=== PATIENT | male | born 1955 | race Caucasian/White ===

== ENCOUNTER 2016-06-05 16:25 | Inpatient (IN) | payer OTHER ==
[~2016-06-05] VITALS: Ht 175.3 cm; Wt 72.5 kg
[2016-06-05 16:27] VITALS: BP 128/64; PULSE 99; RESP 19; TEMP 98.2; O2SAT 97
--- NOTE | 2016-06-05 16:49 | PD ---
Physical Exam Date Seen by Provider: Jun 05, 2016 Time Seen by Provider: 16:47 Narrative 61 year old male presents to the emergency department for evaluation of swollen scrotum with associated pain. He reports dysuria, urinary frequency, urgency. Patient awaiting bed placement. Data Data Last Documented VS Vital Signs Date Time Temp Pulse Resp B/P Pulse Ox O2 Delivery O2 Flow Rate FiO2 06/05/16 16:27 98.2 99 19 128/64 97 MDM Supervised Visit with JAMES: No Scripts No Active Prescriptions or Reported Meds Silva Aguiar Jun 05, 2016 16:49
--- NOTE | 2016-06-05 18:10 | PD ---
HPI Chief Complaint: Complaint Time Seen by Provider: 17:45 Travel History International Travel<30 days: No Contact w/Intl Traveler<30days: No Traveled to known affect area: No History of Present Illness HPI 61-year-old male with history of hepatitis C, diabetes, here for evaluation of scrotal and penile swelling and pain. The patient reports increasing swelling in this region over the last week. Pain is severe, constant, worse with movement and palpation. He denies fevers or chills. No nausea or vomiting. No abdominal pain. PFSH Social History Tobacco Use: Yes Allergies-Medications (Allergen,Severity, Reaction): Coded Allergies: No Known Allergies (Unverified , 06/05/16) Reported Meds & Prescriptions Reported Meds & Active Scripts Active Reported Lactulose Liq (Lactulose) 10 Gm/15 Ml Soln Unknown Dose PO TID Metformin (Metformin HCl) 1,000 Mg Tab 1,000 Mg PO BID With meals Review of Systems Except as stated in HPI: all other systems reviewed are Neg Physical Exam Narrative GENERAL: Well-developed, well-nourished, moderate distress secondary to pain. SKIN: Focused skin assessment warm/dry. HEAD: Atraumatic. Normocephalic. EYES: Pupils equal and round. No scleral icterus. No injection or drainage. ENT: Mucous membranes pink and moist. Poor dentition with several missing teeth. NECK: Trachea midline. No JVD. CARDIOVASCULAR: Regular rate and rhythm. RESPIRATORY: No accessory muscle use. Clear to auscultation. Breath sounds equal bilaterally. GASTROINTESTINAL: Abdomen distended with fluid wave, nontender. : Significant scrotal and penile edema with mild scrotal erythema, no crepitus, no signs of necrosis. MUSCULOSKELETAL: No obvious deformities. No clubbing. No cyanosis. No edema. NEUROLOGICAL: Awake and alert. No obvious cranial nerve deficits. Motor grossly within normal limits. Normal speech. PSYCHIATRIC: Appropriate mood and affect; insight and judgment normal. Data Data Last Documented VS Vital Signs Date Time Temp Pulse Resp B/P Pulse Ox O2 Delivery O2 Flow Rate FiO2 06/05/16 19:22 96.6 88 16 120/63 97 Room Air Orders Complete Blood Count With Diff (06/05/16 18:02) Comprehensive Metabolic Panel (06/05/16 18:02) Prothrombin Time / Inr (Pt) (06/05/16 18:02) Act Partial Throm Time (Ptt) (06/05/16 18:02) Lactic Acid Sepsis Protocol (06/05/16 18:02) Urinalysis - C+S If Indicated (06/05/16 18:02) Blood Culture (06/05/16 18:02) Blood Glucose (06/05/16 18:02) Ecg Monitoring (06/05/16 18:02) Iv Access Insert/Monitor (06/05/16 18:02) Oximetry (06/05/16 18:02) Oxygen Administration (06/05/16 18:02) Ct Abd/Pel W/O Iv Contrast (06/05/16 18:02) Morphine Inj (Morphine Inj) (06/05/16 18:15) Us Testicles W Doppler (06/05/16 18:48) Furosemide Inj (Lasix Inj) (06/05/16 19:00) Vancomycin Inj (Vancomycin Inj) (06/05/16 19:30) Piperacil-Tazo 3.375 Gm Premix (Zosyn 3. (06/05/16 19:30) Urine Culture (06/05/16 19:11) Admit Order (Ed Use Only) (06/05/16 20:18) Labs Laboratory Tests Test 06/05/16 06/05/16 18:10 19:11 White Blood Count 4.4 TH/MM3 Red Blood Count 3.13 MIL/MM3 Hemoglobin 9.8 GM/DL Hematocrit 29.3 % Mean Corpuscular Volume 93.6 FL Mean Corpuscular Hemoglobin 31.3 PG Mean Corpuscular Hemoglobin 33.4 % Concent Red Cell Distribution Width 17.2 % Platelet Count 102 TH/MM3 Mean Platelet Volume 9.0 FL Neutrophils (%) (Auto) 71.2 % Lymphocytes (%) (Auto) 14.1 % Monocytes (%) (Auto) 12.2 % Eosinophils (%) (Auto) 1.9 % Basophils (%) (Auto) 0.6 % Neutrophils # (Auto) 3.2 TH/MM3 Lymphocytes # (Auto) 0.6 TH/MM3 Monocytes # (Auto) 0.5 TH/MM3 Eosinophils # (Auto) 0.1 TH/MM3 Basophils # (Auto) 0.0 TH/MM3 CBC Comment DIFF FINAL Differential Comment Prothrombin Time 12.5 SEC Prothromb Time International 1.1 RATIO Ratio Activated Partial 24.8 SEC Thromboplast Time Sodium Level 130 MEQ/L Potassium Level 4.4 MEQ/L Chloride Level 96 MEQ/L Carbon Dioxide Level 24.8 MEQ/L Anion Gap 9 MEQ/L Blood Urea Nitrogen 7 MG/DL Creatinine 0.68 MG/DL Estimat Glomerular Filtration 119 ML/MIN Rate Random Glucose 231 MG/DL Lactic Acid Level 4.2 mmol/L Calcium Level 7.6 MG/DL Total Bilirubin 1.2 MG/DL Aspartate Amino Transf 48 U/L (AST/SGOT) Alanine Aminotransferase 29 U/L (ALT/SGPT) Alkaline Phosphatase 90 U/L Total Protein 6.3 GM/DL Albumin 1.9 GM/DL Urine Color YELLOW Urine Turbidity HAZY Urine pH 5.5 Urine Specific [place] 1.006 Urine Protein TRACE mg/dL Urine Glucose (UA) NEG mg/dL Urine Ketones NEG mg/dL Urine Occult Blood MOD Urine Nitrite POS Urine Bilirubin NEG Urine Urobilinogen LESS THAN 2.0 MG/DL Urine Leukocyte Esterase LARGE Urine RBC 8 /hpf Urine WBC 131 /hpf Urine WBC Clumps FEW Urine Squamous Epithelial <1 /hpf Cells Urine Bacteria MANY /hpf Microscopic Urinalysis Comment CATH-CULTURE IND MDM Medical Decision Making Medical Screen Exam Complete: Yes Emergency Medical Condition: Yes Differential Diagnosis Scrotal edema, fluid overload, Clark gangrene, scrotal abscess, scrotal cellulitis, ascites Narrative Course Initial vital signs show heart rate 99, blood pressure 120/64, pulse ox 97% on room air, oral temp of 98.2F. CBC shows WBC 4.4, hemoglobin 9.8, hematocrit 29.3, platelets 102. CMP is remarkable for sodium 1:30, chloride 96, random glucose 231, calcium 7.6 , albumin 1.9, total protein 6.3 Lactic acid is 4.2 UA is suggestive of UTI. CT abdomen pelvis: CONCLUSION: Cirrhotic liver appearance with splenomegaly, ascites and abundant varices. Retroperitoneal alan enlargement also suspected. Scrotal enlargement relative to hydrocele fluid Lactic acidosis is likely secondary to decrease intravascular volume secondary to third spacing from low oncotic pressure from hypoalbuminemia. Patient was started on vancomycin and Zosyn empirically for suspected scrotal infection/ ileus/abscess/Fourniere's. Case discussed with on-call urologist Dr. Alves. He recommends medical management to decrease the patient's scrotal edema. Patient was given a dose of IV Lasix. Given significant pain associated with very significant scrotal and penile edema, the patient will be admitted for further management. Patient was made aware of all findings and of plan for admission. Case discussed with hospitalist Dr. Chowdhury who will admit the patient to her service. Diagnosis Primary Impression: Scrotal edema Additional Impressions: UTI (urinary tract infection) Qualified Code: N39.0 - Urinary tract infection with hematuria, site unspecified Ascites Qualified Code: R18.8 - Other ascites Cirrhosis Qualified Code: K74.60 - Cirrhosis of liver with ascites, unspecified hepatic cirrhosis type Lactic acidosis Admitting Information Admitting Physician Requests: Vance Gaytan MD Jun 05, 2016 18:10
[2016-06-05] MEDS ORDERED: MORPHINE SULFATE 8 MG/ML INJ IV PUSH ONE (18:15)
[2016-06-05 18:48] LABS: AUTOMATED NEUTROPHIL # 3.2 TH/MM3 (1.8-7.7); BASOPHIL % 0.6 % (0.0-2.0); EOSINOPHIL # 0.1 TH/MM3 (0-0.4); EOSINOPHIL % 1.9 % (0.0-4.0); HEMATOCRIT 29.3 % (39.0-51.0); HEMO FLAGS DIFF FINAL; LYMPH % 14.1 % (9.0-44.0); LYMPHOCYTE # 0.6 TH/MM3 (1.0-4.8); MEAN CELL VOLUME 93.6 FL (80.0-100.0); MEAN CORPUSCULAR HEMOGLOBIN 31.3 PG (27.0-34.0); MEAN CORPUSCULAR HGB CONC 33.4 % (32.0-36.0); MONO % 12.2 % (0.0-8.0); NEUT % 71.2 % (16.0-70.0); PLATELET COUNT 102 TH/MM3 (150-450); RED BLOOD COUNT 3.13 MIL/MM3 (4.50-5.90); RED CELL DISTRIBUTION WIDTH 17.2 % (11.6-17.2); WHITE BLOOD COUNT 4.4 TH/MM3 (4.0-11.0)
[2016-06-05] MEDS ORDERED: METF1000 PO (18:49)
[2016-06-05] MEDS ORDERED: LACT10SO PO (18:49)
[2016-06-05 18:54] LABS: APTT (PATIENT) 24.8 SEC (24.3-30.1); INTERNATIONAL NORMALIZED RATIO 1.1 RATIO; PROTHROMBIN TIME - PATIENT 12.5 SEC (9.8-11.6)
[2016-06-05] MEDS ORDERED: FUROSEMIDE 40 MG/4 ML VIAL IV PUSH ONE (19:00)
--- NOTE | 2016-06-05 19:04 | RADRPT ---
EXAM DATE/TIME: 06/05/2016 18:29 [facility] COMPARISON: No previous studies available for comparison. INDICATIONS : Scrotal swelling; rule out Clark's gangrene. ORAL CONTRAST: No oral contrast ingested. RADIATION DOSE: 21.03 CTDIvol (mGy) MEDICAL HISTORY : Diabetes mellitus type 2. Asthma SURGICAL HISTORY : ENCOUNTER: Initial TECHNIQUE: Volumetric scanning of the abdomen and pelvis was performed. Using automated exposure control and ad justment of the mA and/or kV according to patient size, radiation dose was kept as low as reasonably achievable to obtain optimal diagnostic quality images. FINDINGS: LOWER LUNGS: Minimal lung base atelectasis LIVER: Cirrhotic appearance. No focal mass or biliary ductal dilatation. Single tiny gallstone. Abundant asc ites. SPLEEN: Markedly enlarged without focal mass. Numerous upper abdominal varices PANCREAS: Within normal limits. KIDNEYS: Normal in size and shape. There is no mass, stone, or hydronephrosis. ADRENAL GLANDS: Within normal limits. VASCULAR: Lobular para-aortic densities are felt to be enlarged varicosities. BOWEL/MESENTERY: The stomach, small bowel, and colon demonstrate no acute abnormality. There is no free intraperitone al air or fluid. ABDOMINAL WALL: Small fat-containing periumbilical hernia. RETROPERITONEUM: Lymph node enlargement felt present in addition to varicosities. Standard IV contrast exam will be re quired to differentiate BLADDER: No wall thickening or mass. REPRODUCTIVE: Significant hydrocele fluid INGUINAL: Shotty inguinal nodes bilaterally. MUSCULOSKELETAL: Within normal limits for patient age. CONCLUSION: Cirrhotic liver appearance with splenomegaly, ascites and abundant varices. Retroperitoneal alan enlargement also suspected. Scrotal enlargement relative to hydrocele fluid Alban Lindquist MD on June 05, 2016 at 18:55 Board Certified Radiologist. This report was verified electronically.
[2016-06-05 19:20] LABS: ALKALINE PHOSPHATASE 90 U/L (45-117); ALT (GPT) 29 U/L (12-78); ANION GAP 9 MEQ/L (5-15); AST (GOT) 48 U/L (15-37); BICARBONATE 24.8 MEQ/L (21.0-32.0); BLOOD UREA NITROGEN 7 MG/DL (7-18); CHLORIDE 96 MEQ/L (98-107); GLOMERULAR FILTRATION RATE 119 ML/MIN (>89); SODIUM (NA) 130 MEQ/L (136-145); TOTAL BILIRUBIN ADULT 1.2 MG/DL (0.2-1.0)
[2016-06-05 19:22] VITALS: BP 120/63; PULSE 88; RESP 16; TEMP 96.6; O2SAT 97
[2016-06-05 19:22] LABS: POTASSIUM 4.4 MEQ/L (3.5-5.1)
[2016-06-05] MEDS ORDERED: VANCOMYCIN INJ 1,000 MG in SODIUM CHLOR 0.9% 250 ML INJ 250 ML IV ONE (19:30)
[2016-06-05] MEDS ORDERED: PIPERACIL-TAZO 3.375 GM PREMIX 50 ML IV ONE (19:30)
[2016-06-05 19:39] LABS: BACTERIA, URINE MANY /hpf; BLOOD, URINE MOD (NEG); GLUCOSE,URINE NEG (NEG); KETONE, URINE NEG (NEG); PH, URINE 5.5 (5.0-8.5); SQUAMOUS EPITHELIAL CELL URINE <1 /hpf (0-5); URINE COLOR YELLOW (YELLW/STRAW)
[2016-06-05 19:42] LABS: COMMENT (UR) CATH-CULTURE IND; CULTURE IF INDICATED CATH CULTURE IND; NITRITE,URINE POS (NEG)
[2016-06-05 20:33] LABS: LACTIC ACID GHOST NOT REPORTABLE
[2016-06-05] MEDS ORDERED: SODIUM CHLOR 0.9% 1000 ML INJ 1,000 ML IV ONE (20:45)
[2016-06-05] MEDS ORDERED: Vancomycin Consult Pharmacy 1 EA OTHER SCH (20:45)
[2016-06-05] MEDS ORDERED: SODIUM CHLORIDE 0.9% FLUSH 10 ML FLUSH IV FLUSH PRN (20:45)
[2016-06-05] MEDS ORDERED: ONDANSETRON HCL 4 MG/2 ML VIAL IVP PRN (20:45)
[2016-06-05] MEDS ORDERED: BISACODYL 10 MG SUPP RECTAL PRN (20:45)
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
[2016-06-05] MEDS ORDERED: MORPHINE SULFATE 4 MG/ML INJ IV PRN (21:00)
[2016-06-05] MEDS ORDERED: ACETAMINOPHEN 325 MG TAB PO PRN (21:00)
[2016-06-05] MEDS: SODIUM CHLORIDE 0.9% FLUSH 10 ML FLUSH IV FLUSH SCH (21:35)
--- NOTE | 2016-06-05 22:02 | RADRPT ---
EXAM DATE/TIME: 06/05/2016 20:16 [facility] COMPARISON: No previous studies available for comparison. INDICATIONS : Scrotal swelling and pain. MEDICAL HISTORY : Hepatitis C. Asthma. Diabetes. SURGICAL HISTORY : Exploratory laparotomy. ENCOUNTER: Initial ACUITY: 1 week PAIN SCORE: 10/10 LOCATION: Bilateral scrotum. MEASUREMENTS: RIGHT TESTICLE: 3.9 x 2.4 x 2.6cm LEFT TESTICLE: 3.6 x 2.4 x 2.5cm FINDINGS: RIGHT TESTICLE: Homogeneous echotexture without intra or extratesticular mass. Blood flow is symmetric and within no rmal limits. No hydrocele or varicocele. Epididymis is within normal limits. LEFT TESTICLE: Homogeneous echotexture without intra or extratesticular mass. Blood flow is symmetric and within no rmal limits. There is a mild hydrocele. No varicocele is present. The epididymis appears enlarged a nd hyperemic. SCROTUM: There is very prominent diffuse thickening and edema throughout the scrotum. CONCLUSION: 1. There are prominent scrotal edema and thickening. 2. The testicles both appear normal. 3. The left epididymis appears enlarged with increased vascularity concerning for epididymitis. Alban Coello MD on June 05, 2016 at 21:58 Board Certified Radiologist. This report was verified electronically.
[2016-06-05 23:05] VITALS: BP 161/68; PULSE 103; RESP 20; TEMP 98.2; O2SAT 94
[2016-06-06] MEDS ORDERED: GLUCAGON 1 MG/ML VIAL OTHER PRN (02:30)
[2016-06-06] MEDS ORDERED: DEXTROSE 50% IN WATER 50 ML VIAL(D50) IV PUSH PRN (02:30)
[2016-06-06] MEDS: VANCOMYCIN INJ 1,250 MG in SODIUM CHLOR 0.9% 250 ML INJ 250 ML IV SCH ×2 (03:59→18:09)
[2016-06-06 05:19] VITALS: BP 123/68; PULSE 68; RESP 14; TEMP 98.7; O2SAT 91
[2016-06-06] MEDS: INSULIN ASPART SUPPLEMENTAL SCALE SQ SCH ×4 (06:12→21:54)
[2016-06-06] MEDS: SODIUM CHLORIDE 0.9% FLUSH 10 ML FLUSH IV FLUSH SCH ×2 (08:08→21:52)
[2016-06-06] MEDS: CEFEPIME INJ 1,000 MG in SODIUM CHLORIDE 0.9% INJ 100 ML IV SCH ×2 (08:09→21:52)
--- NOTE | 2016-06-06 08:14 | HHI.PR ---
Subjective Remarks Follow up for scrotal edema/erythema with epididymitis. The patient reports his scrotal edema has been getting worse over the past week. He states he tried calling his doctor [facility] who was only able to see him as soon as Wednesday however the patient couldn't wait that long. The patient reports chills but no documented fevers. He reports urinary hesitancy/retention. Also having diffuse abdominal pain and scrotal pain. Objective Vitals Vital Signs Date Time Temp Pulse Resp B/P Pulse Ox O2 Delivery O2 Flow Rate FiO2 06/06/16 05:19 98.7 68 14 123/68 91 06/05/16 23:05 98.2 103 20 161/68 94 06/05/16 19:22 96.6 88 16 120/63 97 Room Air 06/05/16 19:21 16 06/05/16 18:20 18 06/05/16 16:27 98.2 99 19 128/64 97 I/O 06/05/16 06/05/16 06/05/16 06/06/16 06/06/16 06/06/16 07:00 15:00 23:00 07:00 15:00 23:00 Intake Total 1500 ml Balance 1500 ml Intake Oral 550 ml IV Total 950 ml # Voids 2 Result Diagram: 06/05/16 1810 06/05/160 Imaging Last Impressions Scrotum Ultrasound 06/05/16 1848 Signed Impressions: Service Date/Time: Sunday, June 05, 2016 20:16 - CONCLUSION: 1. There are prominent scrotal edema and thickening. 2. The testicles both appear normal. 3. The left epididymis appears enlarged with increased vascularity concerning for epididymitis. Alban Coello MD Abdomen/Pelvis CT 06/05/16 1802 Signed Impressions: Service Date/Time: Sunday, June 05, 2016 18:29 - CONCLUSION: Cirrhotic liver appearance with splenomegaly, ascites and abundant varices. Retroperitoneal alan enlargement also suspected. Scrotal enlargement relative to hydrocele fluid Alban Lindquist MD Objective Remarks GENERAL: Well-nourished, well-developed male patient in [facility]. SKIN: Warm and dry. No rash. HEENT: Normocephalic. Atraumatic. Pupils equal and round. No scleral icterus. No injection or drainage. Mucous membranes pink and moist. NECK: Supple. Trachea midline. CARDIOVASCULAR: Regular rate and rhythm. S1, S2 noted. No murmur appreciated. RESPIRATORY: No accessory muscle use. Clear to auscultation. Breath sounds equal bilaterally. GASTROINTESTINAL: Abdomen soft, mild diffuse TTP, slightly distended with ascites. Normoactive bowel sounds x4. GENITOURINARY: Significant scrotal edema and erythema, with moderate diffuse TTP. MUSCULOSKELETAL: No obvious deformities. Diffuse bilateral 3+ lower extremity pitting edema. NEUROLOGICAL: Awake and alert. No obvious cranial nerve deficits. Motor grossly within normal limits. Normal speech. PSYCHIATRIC: Appropriate mood and affect; insight and judgment normal. Medications and IVs Current Medications Medications (Trade) Dose Ordered Sig/Tammie Route Start Time Stop Time Status Last Admin Pharmacy Profile Note 0 ml @ 0 mls/hr UNSCH OTHER 06/05/16 20:45 (Maxipime Inj/NS Inj) 100 ml @ 200 mls/hr Q12H IV 06/06/16 09:00 06/06/16 08:09 (NS Flush) 2 ml UNSCH PRN IV FLUSH 06/05/16 20:45 (NS Flush) 2 ml BID IV FLUSH 06/05/16 21:00 06/06/16 08:08 (Zofran Inj) 4 mg Q6H PRN IVP 06/05/16 20:45 (Dulcolax Supp) 10 mg DAILY PRN RECTAL 06/05/16 20:45 (Tylenol) 650 mg Q6H PRN PO 06/05/16 21:00 (Morphine Inj) 2 mg Q3H PRN IV 06/05/16 21:00 Oxycodone HCl 5 mg 5 mg Q4H PRN PO 06/05/16 21:00 06/06/16 04:04 (Vancomycin Inj/ NS 250 ml Inj) 262.5 ml @ 250 mls/hr Q12H IV 06/06/16 04:00 06/06/16 03:59 Miscellaneous Information SPECIFIC LAB TO BE DRAWN:VANCOMYCIN TROUGH DATE TO... ONCE ONCE .XX 06/07/16 03:45 06/07/16 03:46 (D50w (Vial) Inj) 25 ml UNSCH PRN IV PUSH 06/06/16 02:30 (Glucagon Inj) 1 mg UNSCH PRN OTHER 06/06/16 02:30 Urinary Catheter: No Vascular Central Line Catheter: No A/P Problem List: (1) Lactic acidosis ICD Code: E87.2 Status: Acute (2) Scrotal edema ICD Code: N50.89 Status: Acute (3) UTI (urinary tract infection) ICD Code: N39.0 Status: Acute (4) Cirrhosis ICD Code: K74.60 Status: Acute (5) Ascites ICD Code: R18.8 Status: Acute (6) DM (diabetes mellitus) ICD Code: E11.9 Status: Acute Assessment and Plan 61-year-old male with a PMH of HTN, Hepatitis C, DM, COPD and Tobacco Abuse who presented to the ER with complaints of scrotal swelling and redness x1 wk. Also notes worsening abdominal distention and increasing abdominal discomfort. Acute Epididymitis & Scrotal Edema: worsening scrotal edema/erythema x1 wk. S/ p Blood/Urine culture in ER, Zosyn/Vanc. Images reviewed: CT Abd/Pelvis w/ cirrhotic liver, splenomegaly, ascites and varices, scrotal enlargement relative to hydrocele fluid. Scrotal US w/ prominent scrotal edema/thickening, left epididymitis. Preliminary urine culture with gram negative rods Blood culture with NGTD Continue IV Cefepime and IV Vanco Consulted urology Dr. Alves, recommends scrotal elevation at all times while not ambulating. Per urology, needs abx for 2 weeks, may transition to po Cipro at discharge, pending final urine C&S Anasarca/Ascites secondary to Cirrhosis: h/o Hep C, denies Alcohol. CT Abd/ Pelvis w/ significant ascites/varices. +abdominal distention on exam w/ discomfort. Check liver U/S Check echocardiogram to r/out heart failure Ordered U/S guided abdominal paracentesis, diagnostic and therapeutic. Give IV Albumin 25% 25G q12h followed by IV Lasix 40mg bid [id number] total Monitor for improvement Hypoalbuminemia: likely contributing to 3rd spacing with ascites/anasarca. Giving IV Albumin as above. UTI: U/a w/ UTI, will continue w/ IVF and IV Abx. DM: Sliding scale w/ Accu-Cheks. Hold Metformin for now in light of acute infection DVT Prophylaxis: SCD/Teds. Written by Barbi Mock, acting as scribe for Dr. Pacheco on 4/8/17 at 11:20 All or portions of this note were transcribed by DIANE Mccracken . I , Dr. Kenny Pacheco personally performed the history, physical exam, and medical decision making; and confirmed the accuracy of the information in the transcribed note. Authenticated by Dr. Kenny Pacheco on 06/06/16 at 23:13. Problem Qualifiers (1) UTI (urinary tract infection): Qualified Code: N39.0 - Urinary tract infection with hematuria, site unspecified (2) Cirrhosis: Qualified Code: K74.60 - Cirrhosis of liver with ascites, unspecified hepatic cirrhosis type (3) Ascites: Qualified Code: R18.8 - Other ascites Barbi Mock PA-C Jun 06, 2016 08:14 Felice Pacheco DO Jun 06, 2016 23:13
[2016-06-06 10:21] LABS: AUTOMATED NEUTROPHIL # 3.1 TH/MM3 (1.8-7.7); BASOPHIL % 0.3 % (0.0-2.0); EOSINOPHIL # 0.1 TH/MM3 (0-0.4); EOSINOPHIL % 2.9 % (0.0-4.0); HEMATOCRIT 29.8 % (39.0-51.0); LYMPH % 12.9 % (9.0-44.0); LYMPHOCYTE # 0.6 TH/MM3 (1.0-4.8); MEAN CELL VOLUME 92.8 FL (80.0-100.0); MEAN CORPUSCULAR HEMOGLOBIN 31.5 PG (27.0-34.0); MEAN CORPUSCULAR HGB CONC 33.9 % (32.0-36.0); MONO % 12.9 % (0.0-8.0); PLATELET COUNT 95 TH/MM3 (150-450); RED BLOOD COUNT 3.21 MIL/MM3 (4.50-5.90); RED CELL DISTRIBUTION WIDTH 17.4 % (11.6-17.2); WHITE BLOOD COUNT 4.4 TH/MM3 (4.0-11.0)
[2016-06-06 10:26] LABS: HEMO FLAGS AUTO DIFF
[2016-06-06 10:36] LABS: ALKALINE PHOSPHATASE 95 U/L (45-117); ALT (GPT) 29 U/L (12-78); ANION GAP 6 MEQ/L (5-15); AST (GOT) 33 U/L (15-37); BICARBONATE 27.9 MEQ/L (21.0-32.0); BLOOD UREA NITROGEN 8 MG/DL (7-18); CHLORIDE 96 MEQ/L (98-107); GLOMERULAR FILTRATION RATE 135 ML/MIN (>89); SODIUM (NA) 130 MEQ/L (136-145); TOTAL BILIRUBIN ADULT 1.3 MG/DL (0.2-1.0)
[2016-06-06 11:11] VITALS: RESP 16; O2SAT 95
[2016-06-06 11:52] LABS: OVALOCYTES 1+ (NORMAL); PLATELET ESTIMATE SMEAR LOW (NORMAL); PLATELET MORPHOLOGY NORMAL (NORMAL); SCAN/DIFF AUTO DIFF CONFIRMED
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
[2016-06-06 16:09] VITALS: BP 109/55; PULSE 94; RESP 20; TEMP 99.2; O2SAT 95
[2016-06-06] MEDS: ALBUMIN HUMAN 25% 25 GM/100 ML BAGP IV SCH (16:18)
[2016-06-06] MEDS: FUROSEMIDE 40 MG/4 ML VIAL IV PUSH SCH (18:09)
[2016-06-06 20:39] VITALS: BP 112/58; PULSE 68; RESP 18; TEMP 98; O2SAT 97
--- NOTE | 2016-06-06 21:03 | RADRPT ---
EXAM DATE/TIME: 06/06/2016 15:42 [facility] COMPARISON: No previous studies available for comparison. INDICATIONS : Ascites. MEDICAL HISTORY : Cirrhosis. Hepatitis C. Asthma. Diabetes. SURGICAL HISTORY : Exploratory laparotomy. ENCOUNTER: Subsequent ACUITY: 2 days PAIN SCORE: 7/10 LOCATION: Bilateral abdomen. AREA EVALUATED: Abdominal quadrants. FINDINGS: Imaging of the abdomen and pelvis was performed to evaluate for ascites for possible paracentesis. T here is a small amount of free fluid in the abdomen. This is insufficient for paracentesis. CONCLUSION: Small amount of ascites. Insufficient for paracentesis. Addison Daly MD on June 06, 2016 at 21:01 Board Certified Radiologist. This report was verified electronically.
--- NOTE | 2016-06-06 21:56 | RADRPT ---
EXAM DATE/TIME: 06/06/2016 19:33 [facility] COMPARISON: No previous studies available for comparison. INDICATIONS : Cirrhosis seen on CT scan. MEDICAL HISTORY : Cirrhosis. Hepatitis C. Asthma. Diabetes. SURGICAL HISTORY : Exploratory laparotomy. ENCOUNTER: Subsequent ACUITY: 2 days PAIN SCORE: 8/10 LOCATION: Abdomen. MEASUREMENTS: LIVER: 14.6 cm length COMMON DUCT: 6 mm RIGHT KIDNEY: 12.2 x 7.0 x 6.3 cm SPLEEN: 22.6 cm length FINDINGS: LIVER: There is an increased echogenicity in the liver parenchyma. No dilated biliary ducts are demonstrated . There is a small amount of ascites adjacent to the liver. The portal system is patent. However ther e is questionable mural thrombus in the main portal vein. COMMON DUCT: No intraluminal mass or stone visualized. GALLBLADDER: There appears to be a tiny stone measuring 6 mm in the gallbladder. There is thickening of the gallbl adder wall measuring 6 mm. There is a trace of fluid around the gallbladder. PANCREAS: Not well visualized RIGHT KIDNEY: No hydronephrosis, stone or mass. SPLEEN: No focal lesion. Diffusely enlarged CONCLUSION: 1. Diffusely enlarged spleen characteristic of splenomegaly 2. Mild amount of ascites in the upper abdomen. 3. Diffuse fatty infiltration of the liver with no definite biliary tract obstruction 4. 6 mm gallstone in the gallbladder. Diffuse thickening of the gallbladder wall with a trace of flui d adjacent the gallbladder. This can be seen with chronic or acute cholecystitis. 5. Questionable mural thrombus in the main portal vein. However the portal system does appear to be p atent. Addison Daly MD on June 06, 2016 at 21:50 Board Certified Radiologist. This report was verified electronically.
[2016-06-06 23:54] VITALS: BP 124/60; PULSE 88; RESP 18; TEMP 98.8; O2SAT 97
[2016-06-07 03:39] VITALS: BP 150/66; PULSE 89; RESP 18; TEMP 98.8; O2SAT 98
[2016-06-07] MEDS: VANCOMYCIN INJ 1,250 MG in SODIUM CHLOR 0.9% 250 ML INJ 250 ML IV SCH (03:45)
[2016-06-07] MEDS: ALBUMIN HUMAN 25% 25 GM/100 ML BAGP IV SCH ×2 (03:45→15:25)
[2016-06-07] MEDS ORDERED: PHARMACY ORDERED LAB ONE (03:45)
[2016-06-07] MEDS: INSULIN ASPART SUPPLEMENTAL SCALE SQ SCH ×4 (06:20→21:26)
[2016-06-07 07:11] LABS: ALKALINE PHOSPHATASE 70 U/L (45-117); ALT (GPT) 26 U/L (12-78); ANION GAP 7 MEQ/L (5-15); AST (GOT) 65 U/L (15-37); BICARBONATE 29.2 MEQ/L (21.0-32.0); CHLORIDE 96 MEQ/L (98-107); GLOMERULAR FILTRATION RATE 125 ML/MIN (>89); SODIUM (NA) 132 MEQ/L (136-145); TOTAL BILIRUBIN ADULT 1.3 MG/DL (0.2-1.0)
[2016-06-07 07:17] LABS: BLOOD UREA NITROGEN 8 MG/DL (7-18); POTASSIUM 5.4 MEQ/L (3.5-5.1)
[2016-06-07 07:28] VITALS: BP 117/58; PULSE 89; RESP 20; TEMP 98.4; O2SAT 98
[2016-06-07 07:52] LABS: BASOPHIL % 0.3 % (0.0-2.0); EOSINOPHIL # 0.1 TH/MM3 (0-0.4); EOSINOPHIL % 3.3 % (0.0-4.0); HEMATOCRIT 26.5 % (39.0-51.0); LYMPH % 16.4 % (9.0-44.0); LYMPHOCYTE # 0.5 TH/MM3 (1.0-4.8); MEAN CELL VOLUME 92.6 FL (80.0-100.0); MEAN CORPUSCULAR HEMOGLOBIN 31.8 PG (27.0-34.0); MEAN CORPUSCULAR HGB CONC 34.4 % (32.0-36.0); MONO % 15.5 % (0.0-8.0); NEUT % 64.5 % (16.0-70.0); PLATELET COUNT 80 TH/MM3 (150-450); RED BLOOD COUNT 2.87 MIL/MM3 (4.50-5.90); WHITE BLOOD COUNT 3.1 TH/MM3 (4.0-11.0)
[2016-06-07 08:00] LABS: HEMO FLAGS AUTO DIFF
[2016-06-07] MEDS: FUROSEMIDE 40 MG/4 ML VIAL IV PUSH SCH ×2 (08:02→16:09)
[2016-06-07] MEDS: CEFEPIME INJ 1,000 MG in SODIUM CHLORIDE 0.9% INJ 100 ML IV SCH (08:03)
--- NOTE | 2016-06-07 08:12 | HHI.PR ---
Subjective Remarks Follow up for scrotal edema, epididymitis, ascites. The patient reports continued scrotal pain and swelling, minimally improved. He states the morphine isn't helping, he takes [place] at home. He does believe the abdominal swelling is improving. He is tolerating oral intake. No fevers/chills. Denies any other medical complaints. Objective Vitals Vital Signs Date Time Temp Pulse Resp B/P Pulse Ox O2 Delivery O2 Flow Rate FiO2 06/07/16 07:28 98.4 89 20 117/58 98 06/07/16 03:39 98.8 89 18 150/66 98 06/06/16 23:54 98.8 88 18 124/60 97 06/06/16 20:39 98.0 68 18 112/58 97 06/06/16 16:09 99.2 94 20 109/55 95 06/06/16 11:11 16 95 I/O 06/06/16 06/06/16 06/06/16 06/07/16 06/07/16 06/07/16 07:00 15:00 23:00 07:00 15:00 23:00 Intake Total 1500 ml 300 ml 1244 ml Output Total 400 ml Balance 1500 ml -100 ml 1244 ml Intake Oral 550 ml 300 ml 480 ml IV Total 950 ml 764 ml Output Urine Total 400 ml # Voids 2 5 3 Result Diagram: 06/06/16 0950 06/07/16 0600 Imaging Last Impressions Liver Ultrasound 06/06/16 0000 Signed Impressions: Service Date/Time: Monday, June 06, 2016 19:33 - CONCLUSION: 1. Diffusely enlarged spleen characteristic of splenomegaly 2. Mild amount of ascites in the upper abdomen. 3. Diffuse fatty infiltration of the liver with no definite biliary tract obstruction 4. 6 mm gallstone in the gallbladder. Diffuse thickening of the gallbladder wall with a trace of fluid adjacent the gallbladder. This can be seen with chronic or acute cholecystitis. 5. Questionable mural thrombus in the main portal vein. However the portal system does appear to be patent. Addison Daly MD Abdomen Ultrasound 06/06/16 0000 Signed Impressions: Service Date/Time: Monday, June 06, 2016 15:42 - CONCLUSION: Small amount of ascites. Insufficient for paracentesis. Addison Daly MD Scrotum Ultrasound 4/09/148 Signed Impressions: Service Date/Time: Sunday, June 05, 2016 20:16 - CONCLUSION: 1. There are prominent scrotal edema and thickening. 2. The testicles both appear normal. 3. The left epididymis appears enlarged with increased vascularity concerning for epididymitis. Alban Coello MD Abdomen/Pelvis CT 06/05/16 1802 Signed Impressions: Service Date/Time: Sunday, June 05, 2016 18:29 - CONCLUSION: Cirrhotic liver appearance with splenomegaly, ascites and abundant varices. Retroperitoneal alan enlargement also suspected. Scrotal enlargement relative to hydrocele fluid Alban Lindquist MD Objective Remarks GENERAL: Well-nourished, well-developed male patient in NAD. SKIN: Warm and dry. No rash. Anasarca. HEENT: Normocephalic. Atraumatic. Pupils equal and round. No scleral icterus. No injection or drainage. Mucous membranes pink and moist. NECK: Supple. Trachea midline. CARDIOVASCULAR: Regular rate and rhythm. S1, S2 noted. No murmur appreciated. RESPIRATORY: No accessory muscle use. Clear to auscultation. Breath sounds equal bilaterally. GASTROINTESTINAL: Abdomen soft, mild diffuse TTP, distended with ascites. Normoactive bowel sounds x4. GENITOURINARY: Significant scrotal edema and erythema, with moderate diffuse TTP. MUSCULOSKELETAL: No obvious deformities. Diffuse 3+ bilateral lower extremity pitting edema. NEUROLOGICAL: Awake and alert. No obvious cranial nerve deficits. Motor grossly within normal limits. Normal speech. PSYCHIATRIC: Appropriate mood and affect; insight and judgment normal. Medications and IVs Current Medications Medications (Trade) Dose Ordered Sig/Tammie Route Start Time Stop Time Status Last Admin Pharmacy Profile Note 0 ml @ 0 mls/hr UNSCH OTHER 06/05/16 20:45 (Maxipime Inj/NS Inj) 100 ml @ 200 mls/hr Q12H IV 06/06/16 09:00 06/06/16 21:52 (NS Flush) 2 ml UNSCH PRN IV FLUSH 06/05/16 20:45 (NS Flush) 2 ml BID IV FLUSH 06/05/16 21:00 06/06/16 21:52 (Zofran Inj) 4 mg Q6H PRN IVP 06/05/16 20:45 (Dulcolax Supp) 10 mg DAILY PRN RECTAL 06/05/16 20:45 (Tylenol) 650 mg Q6H PRN PO 06/05/16 21:00 (Morphine Inj) 2 mg Q3H PRN IV 06/05/16 21:00 06/07/16 00:38 Oxycodone HCl 5 mg 5 mg Q4H PRN PO 06/05/16 21:00 06/07/16 03:44 (Vancomycin Inj/ NS 250 ml Inj) 262.5 ml @ 250 mls/hr Q12H IV 06/06/16 04:00 06/07/16 03:45 (D50w (Vial) Inj) 25 ml UNSCH PRN IV PUSH 06/06/16 02:30 (Glucagon Inj) 1 mg UNSCH PRN OTHER 06/06/16 02:30 (Albumin 25% Inj) 25 gm Q12H IV 06/06/16 15:15 06/07/16 15:16 06/07/16 03:45 (Lasix Inj) 40 mg BID@09,18 IV PUSH 06/06/16 18:00 06/07/16 18:01 06/06/16 18:09 Urinary Catheter: No Vascular Central Line Catheter: No A/P Problem List: (1) Lactic acidosis ICD Code: E87.2 Status: Acute (2) Scrotal edema ICD Code: N50.89 Status: Acute (3) UTI (urinary tract infection) ICD Code: N39.0 Status: Acute (4) Cirrhosis ICD Code: K74.60 Status: Acute (5) Ascites ICD Code: R18.8 Status: Acute (6) DM (diabetes mellitus) ICD Code: E11.9 Status: Acute Assessment and Plan 61-year-old male with a PMH of HTN, Hepatitis C, DM, COPD and Tobacco Abuse who presented to the ER with complaints of scrotal swelling and redness x1 wk. Also notes worsening abdominal distention and increasing abdominal discomfort. Acute Epididymitis & Scrotal Edema: worsening scrotal edema/erythema x1 wk. S/ p Blood/Urine culture in ER, Zosyn/Vanc. Images reviewed: CT Abd/Pelvis w/ cirrhotic liver, splenomegaly, ascites and varices, scrotal enlargement relative to hydrocele fluid. Scrotal US w/ prominent scrotal edema/thickening, left epididymitis. Preliminary urine culture with gram negative rods Blood culture with NGTD S/p IV Cefepime and IV Vanco, transition antibiotics to po Levaquin 500mg daily [id number] Consulted urology Dr. Alves, recommends scrotal elevation at all times while not ambulating, and continue abx. Pain control with [place] prn Anasarca/Ascites secondary to Cirrhosis: h/o Hep C, denies Alcohol. CT Abd/ Pelvis w/ significant ascites/varices. +abdominal distention on exam w/ discomfort. Liver U/S shows diffusely enlarged spleen, mild ascites, diffuse fatty liver infiltration, 6mm stone in GB with diffuse GB thickening, trace fluid, chronic vs acute cholecystitis Check echocardiogram to r/out heart failure Not enough fluid to perform U/S guided abdominal paracentesis Give IV Albumin 25% 25G q12h followed by IV Lasix 40mg bid [id number] Continue IV Lasix 40mg bid for now Plan to dc on Lasix 40mg po daily and Spironolactone 50mg po daily, increase to 100mg if BP allows Monitor for improvement Hypoalbuminemia: likely contributing to 3rd spacing with ascites/anasarca. Giving IV Albumin followed by lasix as above. UTI: U/a w/ UTI, will continue w/ IVF and IV Abx. Monitor urine culture. DM: Sliding scale w/ Accu-Cheks. Hold Metformin for now in light of acute infection. Check HgbA1c. Hyperkalemia: K 5.4, slight hemolysis noted. Repeat K today. Hyponatremia: Na 130. S/p IVF bolus in ER. Monitor Na, improving. Pancytopenia/Thrombocytopenia: secondary to liver disease. Monitor. Avoid antiplatelets. DVT Prophylaxis: SCD/Teds. Written by Barbi Mock, acting as scribe for Dr. Pacheco on 06/07/16 at 10:00. All or portions of this note were transcribed by scribDIANE Cohn. I , Dr. Kenny Pacheco personally performed the history, physical exam, and medical decision making; and confirmed the accuracy of the information in the transcribed note. Authenticated by Dr. Kenny Pacheco on 06/07/16 at 23:36. Problem Qualifiers (1) UTI (urinary tract infection): Qualified Code: N39.0 - Urinary tract infection with hematuria, site unspecified (2) Cirrhosis: Qualified Code: K74.60 - Cirrhosis of liver with ascites, unspecified hepatic cirrhosis type (3) Ascites: Qualified Code: R18.8 - Other ascites Barbi Mock PA-C Jun 07, 2016 08:12 Felice Pacheco DO Jun 07, 2016 23:36
[2016-06-07] MEDS: SODIUM CHLORIDE 0.9% FLUSH 10 ML FLUSH IV FLUSH SCH ×2 (08:39→21:26)
[2016-06-07] MEDS: LEVOFLOXACIN 500 MG TAB PO SCH (09:56)
[2016-06-07] MEDS ORDERED: ACETAMINOPHEN/HYDROcodone 325 MG/5 MG TAB PO PRN (10:00)
[2016-06-07 10:05] LABS: BANDS 9 % (0-6); EOSINOPHILS 2 % (0-4); MYELOCYTES 2 % (0-0); NEUTROPHIL # MANUAL DIFF 2.4 TH/MM3 (1.8-7.7); PLATELET ESTIMATE SMEAR LOW (NORMAL); PLATELET MORPHOLOGY NORMAL (NORMAL); POLYS (SEG NEUTROPHILS) 68 % (16-70); SCAN/DIFF FINAL DIFF MANUAL; WBC DIFF SAMPLE 100
[2016-06-07 10:06] LABS: OVALOCYTES 1+ (NORMAL); TEARDROP RBCS 1+ (NORMAL)
[2016-06-07] MEDS: ACETAMINOPHEN/HYDROcodone 325 MG/7.5 MG TAB PO PRN ×4 (10:40→23:31)
[2016-06-07 11:17] VITALS: BP 108/59; PULSE 84; RESP 20; O2SAT 99
[2016-06-07 13:42] LABS: HEMOGLOBIN A1a 0.9 %; HEMOGLOBIN A1b 0.7 %; HEMOGLOBIN F 1.4 %; HEMOGLOBIN LA1C 2.4 %
[2016-06-07 20:00] VITALS: BP 117/59; PULSE 83; RESP 20; TEMP 98.8; O2SAT 99
--- NOTE | 2016-06-07 22:02 | EC ---
Study Study Date:06/07/2016 STUDY CONCLUSIONS SUMMARY - Left ventricle: The cavity size was normal. Wall thickness was normal. Systolic function was normal. The estimated ejection fraction was in the range of 55% to 60%. Wall motion was normal; there were no regional wall motion abnormalities. - Aortic valve: Valve area: 2.21cm^2 (Vmax). - Mitral valve: Mild to moderate regurgitation. - Tricuspid valve: Mild regurgitation. - Pulmonic valve: Peak gradient: 12mm Hg (S). - Pulmonary arteries: PA peak pressure: 31mm Hg (S). If LV function is below 40, please consider prescribing an ACEI or ARB or document rationale for non-use. PROCEDURE DATA STUDY STATUS: Elective. Procedure: Transthoracic echocardiography. Image quality was good. Scanning was performed from the parasternal, apical, and subcostal acoustic windows. Study completion: The patient tolerated the procedure well. Transthoracic echocardiography. M-mode, complete 2D, complete spectral Doppler, and color Doppler. Height: Height: 69in. Weight: Weight: 158.7lb. Body mass index: BMI: 23.5kg/m^2. Body surface area: BSA: 1.87m^2. Patient status: Inpatient. CARDIAC ANATOMY LEFT VENTRICLE: The cavity size was normal. Wall thickness was normal. Systolic function was normal. The estimated ejection fraction was in the range of 55% to 60%. Wall motion was normal; there were no regional wall motion abnormalities. AORTIC VALVE: Trileaflet; normal thickness leaflets. Doppler: Transvalvular velocity was within the normal range. There was no stenosis. No regurgitation. Valve area: 2.21cm^2 (Vmax). Indexed valve area: 1.18cm^2/m^2 (Vmax). Peak gradient: 18mm Hg (S). AORTA: Aortic root: The aortic root was normal in size. MITRAL VALVE: Structurally normal valve. Doppler: Transvalvular velocity was within the normal range. There was no evidence for stenosis. Mild to moderate regurgitation. Peak gradient: 4mm Hg (D). LEFT ATRIUM: The atrium was normal in size. RIGHT VENTRICLE: The cavity size was normal. Wall thickness was normal. PULMONIC VALVE: Doppler: Transvalvular velocity was within the normal range. There was no evidence for stenosis. No regurgitation. Peak gradient: 12mm Hg (S). TRICUSPID VALVE: Structurally normal valve. Doppler: Transvalvular velocity was within the normal range. Mild regurgitation. PULMONARY ARTERY: The main pulmonary artery was normal-sized. Systolic pressure was within the normal range. RIGHT ATRIUM: The atrium was normal in size. PERICARDIUM: There was no pericardial effusion. SYSTEMIC VEINS: Inferior vena cava: The vessel was normal in size. Patient weight: 158.7lb _Ejection fraction:_ 65-75% _Fractional shortening:_ 32% up to 5Kg 5-11.5Kg 11.6-22.9Kg 23-45Kg 45-57Kg Aortic Root 7-13 <17 13-22 17-27 17-27 LA diam 6-13 <23 24-38 33-47 37-40 RVID 10-17 7-15 7-15 7-18 8-17 LVIDd 12-22 <32 24-38 33-47 37-40 LVPW 2-4 3-6 5-7 6-8 7-8 IVS 2-4 3-6 5-7 6-8 7-8 BASIC MEASUREMENTS ADULT NORMAL Left ventricle LV internal dimension, ED, chordal *53.5 mm 43-52 level, PLAX LV internal dimension, ES, chordal 37.3 mm 23-38 level, PLAX Fractional shortening, chordal level, 30 % >29 PLAX LV posterior wall thickness, ED 10.5 mm IVS/LVPW ratio, ED 0.96 <1.3 Ventricular septum Septal thickness, ED 10.1 mm Aortic valve Leaflet separation 16 mm 15-26 BASIC MEASUREMENTS ADULT NORMAL Aortic valve Leaflet separation 16 mm 15-26 Aorta Root diameter, ED 30 mm 20-37 Left atrium Anterior-posterior dimension, ES 40 mm 19-40 Anterior-posterior dimension index, ES 2.14 cm/m^2 <2.2 LA/aortic root ratio 1.33 DOPPLER MEASUREMENTS ADULT NORMAL Main pulmonary artery Pressure, S *31 mm Hg =30 Aortic valve Peak velocity, S 215 cm/s Peak gradient, S 18 mm Hg Valve area, Vmax 2.21 cm^2 Valve area index, Vmax 1.18 cm^2/m^2 Mitral valve Peak E-wave velocity 102 cm/s Peak A-wave velocity 117 cm/s Deceleration time 203 ms 150-230 Peak gradient, D 4 mm Hg Peak E/A ratio 0.9 Maximal regurgitant velocity 401 cm/s Tricuspid valve Regurgitant peak velocity 286 cm/s Peak RV-RA gradient, S 33 mm Hg Maximal regurgitant velocity 286 cm/s Systemic veins Estimated CVP 10 mm Hg Right ventricle RV pressure, S *43 mm Hg <30 Pulmonic valve Peak velocity, S 175 cm/s Peak gradient, S 12 mm Hg LEGEND: Mean values are shown as u=mean value. Asterisk (*) rincon values outside specified normal range. Prepared and signed by Clovis Roe [id number]
[2016-06-08] VITALS: BP 120/64; PULSE 82; RESP 20; TEMP 98.8; O2SAT 98
[2016-06-08] MEDS: ACETAMINOPHEN/HYDROcodone 325 MG/7.5 MG TAB PO PRN ×5 (03:42→22:25)
[2016-06-08 05:47] LABS: AUTOMATED NEUTROPHIL # 1.3 TH/MM3 (1.8-7.7); BASOPHIL % 0.4 % (0.0-2.0); EOSINOPHIL # 0.1 TH/MM3 (0-0.4); EOSINOPHIL % 3.3 % (0.0-4.0); HEMATOCRIT 24.1 % (39.0-51.0); LYMPH % 19.5 % (9.0-44.0); LYMPHOCYTE # 0.4 TH/MM3 (1.0-4.8); MEAN CORPUSCULAR HEMOGLOBIN 32.2 PG (27.0-34.0); MONO % 14.7 % (0.0-8.0); NEUT % 62.1 % (16.0-70.0); PLATELET COUNT 81 TH/MM3 (150-450); RED BLOOD COUNT 2.62 MIL/MM3 (4.50-5.90); RED CELL DISTRIBUTION WIDTH 16.7 % (11.6-17.2); WHITE BLOOD COUNT 2.1 TH/MM3 (4.0-11.0)
[2016-06-08 05:51] LABS: HEMO FLAGS AUTO DIFF
[2016-06-08 06:02] LABS: BICARBONATE 34.8 MEQ/L (21.0-32.0); POTASSIUM 4.1 MEQ/L (3.5-5.1)
[2016-06-08] MEDS: INSULIN ASPART SUPPLEMENTAL SCALE SQ SCH ×4 (06:15→21:00)
[2016-06-08 07:44] LABS: OVALOCYTES 1+ (NORMAL); PLATELET ESTIMATE SMEAR LOW (NORMAL); PLATELET MORPHOLOGY NORMAL (NORMAL); SCAN/DIFF AUTO DIFF CONFIRMED
[2016-06-08 08:00] VITALS: BP 112/56; PULSE 88; RESP 20; TEMP 95.3; O2SAT 98
[2016-06-08] MEDS: SPIRONOLACTONE 50 MG TAB PO SCH (08:55)
[2016-06-08] MEDS: LEVOFLOXACIN 500 MG TAB PO SCH (08:55)
[2016-06-08] MEDS: FUROSEMIDE 40 MG/4 ML VIAL IV PUSH SCH ×2 (08:55→17:46)
[2016-06-08] MEDS ORDERED: FUROSEMIDE 40 MG TAB PO SCH (09:00)
[2016-06-08 12:00] VITALS: BP 108/55; PULSE 79; RESP 20; TEMP 96.2; O2SAT 98
[2016-06-08] MEDS: SODIUM CHLORIDE 0.9% FLUSH 10 ML FLUSH IV FLUSH SCH ×2 (12:26→22:26)
[2016-06-08 16:00] VITALS: BP 108/55; PULSE 79; RESP 20; TEMP 96.2; O2SAT 98
[2016-06-08 20:00] VITALS: BP 125/63; PULSE 85; RESP 20; TEMP 99; O2SAT 98
--- NOTE | 2016-06-08 23:43 | HHI.PR ---
Subjective Remarks Follow up for scrotal edema, epididymitis, ascites. Patient reports no fever, chills. He is ambulating well. Wants to take a shower. We advised patient to get assistance when he takes a shower since the shower floor may be slippery. Objective Vitals Vital Signs Date Time Temp Pulse Resp B/P Pulse Ox O2 Delivery O2 Flow Rate FiO2 06/08/16 20:00 99.0 85 20 125/63 98 06/08/16 16:00 96.2 79 20 108/55 98 06/08/16 12:00 96.2 79 20 108/55 98 06/08/16 08:00 95.3 88 20 112/56 98 06/08/16 00:00 98.8 82 20 120/64 98 I/O 06/07/16 06/07/16 06/07/16 06/08/16 06/08/16 06/08/16 07:00 15:00 23:00 07:00 15:00 23:00 Intake Total 1244 ml 220 ml 360 ml 720 ml 720 ml 480 ml Output Total 850 ml 850 ml 800 ml Balance 1244 ml 220 ml -490 ml -130 ml 720 ml -320 ml Intake Oral 480 ml 360 ml 720 ml 720 ml 480 ml Oral Supplement 120 ml IV Total 764 ml 100 ml 0 ml 0 ml Output Urine Total 850 ml 850 ml 800 ml # Voids 3 3 # Bowel Movements 0 0 0 Result Diagram: 06/08/16 0344 06/08/16 0344 Imaging Last Impressions Liver Ultrasound 06/06/16 0000 Signed Impressions: Service Date/Time: Monday, June 06, 2016 19:33 - CONCLUSION: 1. Diffusely enlarged spleen characteristic of splenomegaly 2. Mild amount of ascites in the upper abdomen. 3. Diffuse fatty infiltration of the liver with no definite biliary tract obstruction 4. 6 mm gallstone in the gallbladder. Diffuse thickening of the gallbladder wall with a trace of fluid adjacent the gallbladder. This can be seen with chronic or acute cholecystitis. 5. Questionable mural thrombus in the main portal vein. However the portal system does appear to be patent. Addison Daly MD Abdomen Ultrasound 06/06/16 0000 Signed Impressions: Service Date/Time: Monday, June 06, 2016 15:42 - CONCLUSION: Small amount of ascites. Insufficient for paracentesis. Addison Daly MD Scrotum Ultrasound 06/05/16 1848 Signed Impressions: Service Date/Time: Sunday, June 05, 2016 20:16 - CONCLUSION: 1. There are prominent scrotal edema and thickening. 2. The testicles both appear normal. 3. The left epididymis appears enlarged with increased vascularity concerning for epididymitis. Alban Coello MD Abdomen/Pelvis CT 06/05/16 1802 Signed Impressions: Service Date/Time: Sunday, June 05, 2016 18:29 - CONCLUSION: Cirrhotic liver appearance with splenomegaly, ascites and abundant varices. Retroperitoneal alan enlargement also suspected. Scrotal enlargement relative to hydrocele fluid Alban Lindquist MD Objective Remarks GENERAL: AOX3, NAD. SKIN: Warm and dry. HEAD: Normocephalic. EYES: No scleral icterus. No injection or drainage. NECK: Supple, trachea midline. No JVD or lymphadenopathy. CARDIOVASCULAR: Regular rate and rhythm without murmurs, gallops, or rubs. RESPIRATORY: Breath sounds equal bilaterally. No accessory muscle use. GASTROINTESTINAL: Abdomen firm, non-tender, distended. Scrotal edema present - does not appear to be improving. MUSCULOSKELETAL: No cyanosis, or edema. BACK: Nontender without obvious deformity. No CVA tenderness. A/P Problem List: (1) Lactic acidosis ICD Code: E87.2 Status: Acute (2) Scrotal edema ICD Code: N50.89 Status: Acute (3) UTI (urinary tract infection) ICD Code: N39.0 Status: Acute (4) Cirrhosis ICD Code: K74.60 Status: Acute (5) Ascites ICD Code: R18.8 Status: Acute (6) DM (diabetes mellitus) ICD Code: E11.9 Status: Acute Assessment and Plan 61-year-old male with a PMH of HTN, Hepatitis C, DM, COPD and Tobacco Abuse who presented to the ER with complaints of scrotal swelling and redness x1 wk. Also notes worsening abdominal distention and increasing abdominal discomfort. Acute Epididymitis & Scrotal Edema: worsening scrotal edema/erythema x1 wk. S/ p Blood/Urine culture in ER, Zosyn/Vanc. Images reviewed: CT Abd/Pelvis w/ cirrhotic liver, splenomegaly, ascites and varices, scrotal enlargement relative to hydrocele fluid. Scrotal US w/ prominent scrotal edema/thickening, left epididymitis. Preliminary urine culture with gram negative rods Blood culture with NGTD S/p IV Cefepime and IV Vanco, transition antibiotics to po Levaquin 500mg daily [id number] Consulted urology Dr. Alves, recommends scrotal elevation at all times while not ambulating, and continue abx. Pain control with [place] prn Anasarca/Ascites secondary to Cirrhosis: h/o Hep C, denies Alcohol. CT Abd/ Pelvis w/ significant ascites/varices. +abdominal distention on exam w/ discomfort. Liver U/S shows diffusely enlarged spleen, mild ascites, diffuse fatty liver infiltration, 6mm stone in GB with diffuse GB thickening, trace fluid, chronic vs acute cholecystitis echocardiogram shows EF 55-60%. PA peak pressure 31 mmHg. Not enough fluid to perform U/S guided abdominal paracentesis Give IV Albumin 25% 25G q12h followed by IV Lasix 40mg bid [id number] total Continue IV Lasix 40mg bid for now Plan to dc on Lasix 40mg po daily and Spironolactone 50mg po daily, increase to 100mg if BP allows Monitor for improvement Hypoalbuminemia: likely contributing to 3rd spacing with ascites/anasarca. Giving IV Albumin followed by lasix as above. UTI: U/a w/ UTI, will continue w/ IVF and IV Abx. Monitor urine culture. DM: Sliding scale w/ Accu-Cheks. Hold Metformin for now in light of acute infection. Check HgbA1c. Hyperkalemia: K 5.4 improved to 4.1. Hyponatremia: Na 130. S/p IVF bolus in ER. Na 135 on 06/08/2016 Pancytopenia/Thrombocytopenia: secondary to liver disease. Monitor. Avoid antiplatelets. Full code. DVT Prophylaxis: SCD/Teds. Problem Qualifiers (1) UTI (urinary tract infection): Qualified Code: N39.0 - Urinary tract infection with hematuria, site unspecified (2) Cirrhosis: Qualified Code: K74.60 - Cirrhosis of liver with ascites, unspecified hepatic cirrhosis type (3) Ascites: Qualified Code: R18.8 - Other ascites Felice Pacheco DO Jun 08, 2016 23:43
[2016-06-09] MEDS: ACETAMINOPHEN/HYDROcodone 325 MG/7.5 MG TAB PO PRN ×2 (02:44→06:35)
[2016-06-09] MEDS: INSULIN ASPART SUPPLEMENTAL SCALE SQ SCH (06:36)
[2016-06-09 08:00] VITALS: BP 131/60; PULSE 78; RESP 20; TEMP 97; O2SAT 98
[2016-06-09] MEDS: LEVOFLOXACIN 500 MG TAB PO SCH (09:05)
[2016-06-09] MEDS: FUROSEMIDE 40 MG/4 ML VIAL IV PUSH SCH (09:05)
[2016-06-09] MEDS: SODIUM CHLORIDE 0.9% FLUSH 10 ML FLUSH IV FLUSH SCH (09:06)
[2016-06-09] MEDS: SPIRONOLACTONE 50 MG TAB PO SCH (09:06)
[2016-06-09] MEDS ORDERED: SPIR100T PO (10:17)
[2016-06-09] MEDS ORDERED: BUME1TAB26 PO (10:17)
[2016-06-09] MEDS ORDERED: LEVA500T PO (10:18)
--- NOTE | 2016-06-09 10:21 | HHI.DS ---
Discharge Summary Admission Date Jun 07, 2016 at 10:51 am Discharge Date: Jun 09, 2016 Admitting Diagnosis scrotal edema, ascites, cirrhosis, UTI (1) Lactic acidosis ICD Code: E87.2 (2) Scrotal edema ICD Code: N50.89 Diagnosis: Principal (3) UTI (urinary tract infection) ICD Code: N39.0 (4) Cirrhosis ICD Code: K74.60 Diagnosis: Principal (5) Ascites ICD Code: R18.8 (6) DM (diabetes mellitus) ICD Code: E11.9 Procedures Echo - Left ventricle: The cavity size was normal. Wall thickness was normal. Systolic function was normal. The estimated ejection fraction was in the range of 55% to 60%. Wall motion was normal; there were no regional wall motion abnormalities. - Aortic valve: Valve area: 2.21cm^2 (Vmax). - Mitral valve: Mild to moderate regurgitation. - Tricuspid valve: Mild regurgitation. - Pulmonic valve: Peak gradient: 12mm Hg (S). - Pulmonary arteries: PA peak pressure: 31mm Hg (S). Brief History - From Admission This is a 61-year-old male with a PMH of HTN, Hepatitis C, DM, COPD and Tobacco Abuse who presented to the ER with complaints of scrotal swelling and redness x1 wk. Also notes worsening abdominal distention and increasing abdominal discomfort. Denies nausea, vomiting, fever, chills or diarrhea. On arrival, BP 120/64, HR 99, O2 sat 97% on RA, Afebrile. WBC normal. Platelets 102, no previous labs for comparison. Lactic Acid 4.2, repeat 3.9. Ca 7.6. CT Abd/ Pelvis w/ cirrhotic liver, splenomegaly, ascites and abundant varices, retroperitoneal alan enlargement suspected, scrotal enlargement relative to hydrocele fluid. Dr. Alves consulted by ER physician, recommended Scrotal US and will eval in am. Scrotal US w/ prominent scrotal edema and thickening, testicles normal, left epididymis appears enlarged with increased vascularity concerning for epididymitis. S/p Urine/Blood Culture, Zosyn/Vanc and Lasix 40mg IV. CBC/BMP: 4/10/17 0344 06/08/16 0344 Significant Findings Laboratory Tests Test 06/07/16 06/07/16 06/07/16 06/08/16 04:00 06:00 07:35 03:44 Creatinine 0.52 MG/DL (0.60-1.30) Sodium Level 132 MEQ/L 135 MEQ/L (136-145) (136-145) Potassium Level 5.4 MEQ/L (3.5-5.1) Chloride Level 96 MEQ/L 96 MEQ/L (98-107) (98-107) Random Glucose 173 MG/DL 248 MG/DL (74-106) (74-106) Calcium Level 7.7 MG/DL 8.2 MG/DL (8.5-10.1) (8.5-10.1) Total Bilirubin 1.3 MG/DL (0.2-1.0) Aspartate Amino Transf 65 U/L (15-37) (AST/SGOT) Total Protein 6.2 GM/DL (6.4-8.2) Albumin 2.4 GM/DL (3.4-5.0) White Blood Count 3.1 TH/MM3 2.1 TH/MM3 (4.0-11.0) (4.0-11.0) Red Blood Count 2.87 MIL/MM3 2.62 MIL/MM3 (4.50-5.90) (4.50-5.90) Hemoglobin 9.1 GM/DL 8.4 GM/DL (13.0-17.0) (13.0-17.0) Hematocrit 26.5 % 24.1 % (39.0-51.0) (39.0-51.0) Platelet Count 80 TH/MM3 81 TH/MM3 (150-450) (150-450) Monocytes (%) (Auto) 15.5 % 14.7 % (0.0-8.0) (0.0-8.0) Lymphocytes # (Auto) 0.5 TH/MM3 0.4 TH/MM3 (1.0-4.8) (1.0-4.8) Band Neutrophils % 9 % (0-6) Myelocytes 2 % (0-0) Platelet Estimate LOW (NORMAL) LOW (NORMAL) Tear Drop Cells 1+ (NORMAL) Ovalocytes 1+ (NORMAL) 1+ (NORMAL) Hemoglobin A1c 6.3 % (4.3-6.0) Neutrophils # (Auto) 1.3 TH/MM3 (1.8-7.7) Carbon Dioxide Level 34.8 MEQ/L (21.0-32.0) Anion Gap 4 MEQ/L (5-15) Imaging Last Impressions Liver Ultrasound 06/06/16 0000 Signed Impressions: Service Date/Time: Monday, June 06, 2016 19:33 - CONCLUSION: 1. Diffusely enlarged spleen characteristic of splenomegaly 2. Mild amount of ascites in the upper abdomen. 3. Diffuse fatty infiltration of the liver with no definite biliary tract obstruction 4. 6 mm gallstone in the gallbladder. Diffuse thickening of the gallbladder wall with a trace of fluid adjacent the gallbladder. This can be seen with chronic or acute cholecystitis. 5. Questionable mural thrombus in the main portal vein. However the portal system does appear to be patent. Addison Daly MD Abdomen Ultrasound 06/06/16 0000 Signed Impressions: Service Date/Time: Monday, June 06, 2016 15:42 - CONCLUSION: Small amount of ascites. Insufficient for paracentesis. Addison Daly MD Scrotum Ultrasound 06/05/16 1848 Signed Impressions: Service Date/Time: Sunday, June 05, 2016 20:16 - CONCLUSION: 1. There are prominent scrotal edema and thickening. 2. The testicles both appear normal. 3. The left epididymis appears enlarged with increased vascularity concerning for epididymitis. Alban Coello MD Abdomen/Pelvis CT 06/05/16 1802 Signed Impressions: Service Date/Time: Sunday, June 05, 2016 18:29 - CONCLUSION: Cirrhotic liver appearance with splenomegaly, ascites and abundant varices. Retroperitoneal alan enlargement also suspected. Scrotal enlargement relative to hydrocele fluid Alban Lindquist MD PE at Discharge GENERAL: AOX3, NAD. SKIN: Warm and dry. HEAD: Normocephalic. EYES: No scleral icterus. No injection or drainage. NECK: Supple, trachea midline. No JVD or lymphadenopathy. CARDIOVASCULAR: Regular rate and rhythm without murmurs, gallops, or rubs. RESPIRATORY: Breath sounds equal bilaterally. No accessory muscle use. GASTROINTESTINAL: Abdomen firm, non-tender, distended. Scrotal edema present - does not appear to be improving. MUSCULOSKELETAL: No cyanosis, or edema. BACK: Nontender without obvious deformity. No CVA tenderness. Pt update on day of discharge Follow up for Liver cirrhosis, scrotal edema. Patient is doing well. No acute concerns. He reports persistent leg and scrotal swelling. He does report improvement of his abdominal swelling, however. Hospital Course 61-year-old male with a PMH of HTN, Hepatitis C, DM, COPD and Tobacco Abuse who presented to the ER with complaints of scrotal swelling and redness x1 wk. Also notes worsening abdominal distention and increasing abdominal discomfort. Acute Epididymitis & Scrotal Edema: worsening scrotal edema/erythema x1 wk. S/ p Blood/Urine culture in ER, Zosyn/Vanc. Images reviewed: CT Abd/Pelvis w/ cirrhotic liver, splenomegaly, ascites and varices, scrotal enlargement relative to hydrocele fluid. Scrotal US w/ prominent scrotal edema/thickening, left epididymitis. Preliminary urine culture with gram negative rods Blood culture with NGTD S/p IV Cefepime and IV Vanco, transition antibiotics to po Levaquin 500mg daily x8days Consulted urology Dr. Alves, recommends scrotal elevation at all times while not ambulating, and continue abx. Pain control with [place] prn Anasarca/Ascites secondary to Cirrhosis: h/o Hep C, denies Alcohol. CT Abd/ Pelvis w/ significant ascites/varices. +abdominal distention on exam w/ discomfort. Liver U/S shows diffusely enlarged spleen, mild ascites, diffuse fatty liver infiltration, 6mm stone in GB with diffuse GB thickening, trace fluid, chronic vs acute cholecystitis echocardiogram shows EF 55-60%. PA peak pressure 31 mmHg. Not enough fluid to perform U/S guided abdominal paracentesis Give IV Albumin 25% 25G q12h followed by IV Lasix 40mg bid [id number] total Continue IV Lasix 40mg bid for now On discharge, Bumex 1mg Qday po daily and Spironolactone 100mg Qday. Hypoalbuminemia: likely contributing to 3rd spacing with ascites/anasarca. Received albumin, lasix. We will continue Bumex and Spironolactone. UTI - Continue Levaquin on discharge. DM: Continue home medications. Hyperkalemia: K 5.4 improved to 4.1. Hyponatremia: Na 130. S/p IVF bolus in ER. Na 135 on 06/08/2016 Pancytopenia/Thrombocytopenia: secondary to liver disease. Discussed with patient regarding his condition which is likely due to liver cirrhosis. Patient was advised to follow up with his PCP. He should also follow up with his GI doctor at the [facility]. Pt Condition on Discharge: Good Discharge Disposition: Discharge Home Discharge Time: > 30 minutes Discharge Instructions DIET: Follow Instructions for: Heart Healthy Diet, Low Sodium Diet Activities you can perform: Regular-No Restrictions Follow up Referrals: Gastroenterology - 1 Week PCP Follow-up - 3-5 Days Urology - 1 Week New Orders: BASIC METABOLIC PROF - 1 Week New Medications: Bumetanide (Bumex) 1 Mg Tab 1 MG PO DAILY Fluid #30 Ref 0 TAB Ipratropium-Albuterol Inh (Combivent Respimat Inh) 20-100 Group Home/Act Aero 1 PUFF INH QID Asthma Management #1 Ref 0 INHALER Spironolactone (Spironolactone) 100 Mg Tab 100 MG PO DAILY Fluid #30 Ref 0 TAB Levofloxacin (Levaquin) 500 Mg Tab 500 MG PO DAILY Infection #8 TAB Continued Medications: Lactulose Liq (Lactulose Liq) 10 Gm/15 Ml Soln Unknown Dose PO TID Ref 0 ML Metformin (Metformin) 1,000 Mg Tab 1000 MG PO BID With meals Blood Sugar Management #60 Ref 0 TAB Felice Pacheco DO Jun 09, 2016 10:21
[2016-06-09] MEDS ORDERED: IPRAAER INH (10:23)
[2016-06-09] MEDS ORDERED: HYDR-3516 PO (10:27)
== END 2016-06-09 11:03 | disposition home or self-care (01) | DRG 948 ==
LOC: NEPD 16:25 → NEDA 20:19 → NEPGCP 22:39 → OBSVTOIN 06-07 10:51 → N07A 06-07 16:40
PROVIDERS: ADMIT Hospitalist; ATTEND Hospitalist
DX: R18.8 Other ascites (principal); D61.818 Other pancytopenia; E87.2 Acidosis; D69.59 Other secondary thrombocytopenia; N39.0 Urinary tract infection, site not specified; E87.1 Hypo-osmolality and hyponatremia; E88.09 Other disorders of plasma-protein metabolism, not elsewhere classified; K74.60 Unspecified cirrhosis of liver; N45.1 Epididymitis; N50.89 Other specified disorders of the male genital organs; E87.5 Hyperkalemia; R60.1 Generalized edema; E11.9 Type 2 diabetes mellitus without complications; Z79.84 Long term (current) use of oral hypoglycemic drugs; J44.9 Chronic obstructive pulmonary disease, unspecified; I10 Essential (primary) hypertension; F17.210 Nicotine dependence, cigarettes, uncomplicated; B19.20 Unspecified viral hepatitis C without hepatic coma; R16.1 Splenomegaly, not elsewhere classified
CPT/HCPCS: 74176; 76705; 76870; 76937; 80048; 80053; 80202; 81001; 82565; 82948; 83036; 83605; 85007; 85025; 85027; 85610; 85730; 87040; 87077; 87086; 87186; 93306; 93975; 96365; 96375; G0378; J0692; J1815; J1940; J2270; J2543; J3370; J7030; J7050; P9047

== ENCOUNTER 2016-06-21 20:33 | Inpatient (IN) | payer OTHER ==
[~2016-06-21] VITALS: Ht 175.3 cm; Wt 99.9 kg
[~2016-06-21 20:33] MED LIST: BUME1TAB26 PO; HYDR-3516 PO; IPRAAER INH; LACT10SO PO; LEVA500T PO; METF1000 PO; SPIR100T PO
[2016-06-21 20:45] VITALS: BP 142/70; PULSE 108; RESP 18; TEMP 98; O2SAT 100
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
--- NOTE | 2016-06-21 22:43 | RADRPT ---
EXAM DATE/TIME: 06/21/2016 22:31 [place] COMPARISON: No previous studies available for comparison. INDICATIONS : Vomiting MEDICAL HISTORY : Cirrhosis. Hepatitis C. Asthma. Diabetes. SURGICAL HISTORY : Hepatitis C. Asthma. Diabetes. ENCOUNTER: Initial ACUITY: 1 day PAIN SCORE: 0/10 LOCATION: Bilateral chest FINDINGS: A single view of the chest demonstrates the lungs to be symmetrically aerated without evidence of mas s, infiltrate or effusion. A spring-loaded injection device obscures the left costophrenic angle. T he cardiomediastinal contours are unremarkable. Osseous structures are intact. CONCLUSION: Visualized portion of the lungs are clear. Sundeep Sheikh MD on June 21, 2016 at 22:41 Board Certified Radiologist. This report was verified electronically.
[2016-06-21] MEDS ORDERED: PIPERACIL-TAZO 3.375 GM PREMIX 50 ML IV ONE (22:45)
[2016-06-21] MEDS ORDERED: ONDANSETRON HCL 4 MG/2 ML VIAL IV PUSH ONE (22:45)
[2016-06-21] MEDS ORDERED: MORPHINE SULFATE 4 MG/ML INJ IV PUSH ONE (22:45)
[2016-06-21] MEDS ORDERED: VANCOMYCIN INJ 1,000 MG in SODIUM CHLOR 0.9% 250 ML INJ 250 ML IV ONE (22:45)
[2016-06-21] MEDS ORDERED: BUMETANIDE INJ 1 MG/4 ML VIAL IV PUSH ONE (22:45)
[2016-06-21 22:48] LABS: AUTOMATED NEUTROPHIL # 1.4 TH/MM3 (1.8-7.7); BASOPHIL # 0.1 TH/MM3 (0-0.2); EOSINOPHIL % 2.1 % (0.0-4.0); HEMATOCRIT 30.1 % (39.0-51.0); LYMPH % 17.7 % (9.0-44.0); LYMPHOCYTE # 0.4 TH/MM3 (1.0-4.8); MEAN CELL VOLUME 91.8 FL (80.0-100.0); MEAN CORPUSCULAR HEMOGLOBIN 30.3 PG (27.0-34.0); NEUT % 57.2 % (16.0-70.0); PLATELET COUNT 68 TH/MM3 (150-450); RED BLOOD COUNT 3.28 MIL/MM3 (4.50-5.90); RED CELL DISTRIBUTION WIDTH 17.5 % (11.6-17.2); WHITE BLOOD COUNT 2.4 TH/MM3 (4.0-11.0)
[2016-06-21 23:02] LABS: APTT (PATIENT) 23.9 SEC (24.3-30.1); INTERNATIONAL NORMALIZED RATIO 1.1 RATIO; PROTHROMBIN TIME - PATIENT 12.4 SEC (9.8-11.6)
[2016-06-21 23:06] VITALS: BP 117/62; PULSE 104; RESP 18; O2SAT 100
[2016-06-21 23:12] LABS: ALT (GPT) 31 U/L (12-78); ANION GAP 6 MEQ/L (5-15); AST (GOT) 42 U/L (15-37); BLOOD UREA NITROGEN 11 MG/DL (7-18); CHLORIDE 101 MEQ/L (98-107); GLOMERULAR FILTRATION RATE 119 ML/MIN (>89); HEMO FLAGS AUTO DIFF; MAGNESIUM 1.6 MG/DL (1.5-2.5); POTASSIUM 4.1 MEQ/L (3.5-5.1); SODIUM (NA) 135 MEQ/L (136-145)
[2016-06-21 23:14] LABS: ALKALINE PHOSPHATASE 193 U/L (45-117); TOTAL BILIRUBIN ADULT 0.9 MG/DL (0.2-1.0)
[2016-06-21 23:17] LABS: BANDS 1 % (0-6); METAMYELOCYTES 1 % (0-1); NEUTROPHIL # MANUAL DIFF 1.4 TH/MM3 (1.8-7.7); POLYS (SEG NEUTROPHILS) 56 % (16-70); WBC DIFF SAMPLE 100
[2016-06-21 23:18] LABS: OVALOCYTES 1+ (NORMAL); PLATELET ESTIMATE SMEAR LOW (NORMAL); PLATELET MORPHOLOGY NORMAL (NORMAL); SCAN/DIFF FINAL DIFF MANUAL
[2016-06-21] MEDS ORDERED: SODIUM CHLORID 0.9% 500 ML INJ 500 ML IV ONE (23:30)
[2016-06-22] VITALS: BP 128/62; PULSE 108; RESP 17; O2SAT 97
[2016-06-22 00:31] LABS: BLOOD, URINE SMALL (NEG); GLUCOSE,URINE NEG (NEG); KETONE, URINE NEG (NEG); MUCUS URINE FEW /lpf (OCC); NITRITE,URINE NEG (NEG); URINE COLOR YELLOW (YELLW/STRAW)
[2016-06-22 00:32] LABS: COMMENT (UR) CULT NOT INDICATED; CULTURE IF INDICATED CULT NOT INDICATED
[2016-06-22 00:38] LABS: LACTIC ACID GHOST NOT REPORTABLE
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
[2016-06-22] MEDS ORDERED: GLUCAGON 1 MG/ML VIAL OTHER PRN (02:00)
[2016-06-22] MEDS ORDERED: ONDANSETRON HCL 4 MG/2 ML VIAL IVP PRN (02:00)
[2016-06-22] MEDS ORDERED: DEXTROSE 50% IN WATER 50 ML VIAL(D50) IV PUSH PRN (02:00)
[2016-06-22] MEDS ORDERED: RESP: ALBUTEROL 2.5 MG/IPRATROPIUM 0.5 MG NEB (PRN) NEB (02:00)
[2016-06-22] MEDS ORDERED: NALOXONE HCL 0.4 MG/ML AMP IV PRN (02:00)
[2016-06-22] MEDS ORDERED: SODIUM CHLORIDE 0.9% FLUSH 10 ML FLUSH IV FLUSH PRN (02:00)
[2016-06-22] MEDS ORDERED: ACETAMINOPHEN 325 MG TAB PO PRN ×2 (02:00)
[2016-06-22] MEDS ORDERED: Vancomycin Consult Pharmacy 1 EA OTHER SCH (02:30)
[2016-06-22] MEDS ORDERED: ENALAPRILAT 1.25 MG/ML VIAL IV PUSH PRN (03:00)
[2016-06-22] MEDS ORDERED: VANCOMYCIN 1,500 MG/NS 500 ML IV ONE ×2 (04:00)
[2016-06-22 04:06] VITALS: BP 128/63; PULSE 102; RESP 22; TEMP 99.5; O2SAT 95
[2016-06-22] MEDS: ACETAMINOPHEN/HYDROcodone 325 MG/10 MG TAB PO PRN ×6 (04:32→21:08)
[2016-06-22] MEDS: INSULIN ASPART SUPPLEMENTAL SCALE SQ SCH ×4 (06:04→20:50)
--- NOTE | 2016-06-22 07:58 | HHI.PR ---
Subjective Remarks f/u L lower leg cellulitis no significant change, no fever overnight , right lower leg pain and erythema about the same. Patient also complaining of mild abdominal pain and chronic dyspnea on exertion. Has a mild headache now. No nausea or vomiting. No chest pain. Objective Vitals Vital Signs Date Time Temp Pulse Resp B/P Pulse Ox O2 Delivery O2 Flow Rate FiO2 06/22/16 04:06 99.5 102 22 128/63 95 06/22/16 00:00 108 17 128/62 97 06/21/16 23:06 104 18 117/62 100 06/21/16 21:58 18 97 06/21/16 20:45 98.0 108 18 142/70 100 Result Diagram: 06/21/16220906/21/162209 Procedures GENERAL: This is a well-nourished, well-developed patient, in no apparent distress. SKIN: No rashes, ecchymoses or lesions. Cool and dry. HEAD: Atraumatic. Normocephalic. No temporal or scalp tenderness. GENERAL: NAD SKIN: BLE with some erythema HEAD: Normocephalic. EYES: No scleral icterus. No injection or drainage. NECK: Supple, trachea midline. No JVD or lymphadenopathy. CARDIOVASCULAR: Regular rate and rhythm without murmurs, gallops, or rubs. RESPIRATORY: Bilateral rhonchi, no wheezing. GASTROINTESTINAL: Distended with a positive fluid wave noted. The patient reports tenderness on palpation related to abdominal distention, no focal tenderness. No tenderness on palpation of McBurney's point. MUSCULOSKELETAL: Bilateral lower extremity edema, about 2-3+, chronic hyperpigmentation of her lower extremity likely secondary from venous stasis. Left calf with erythema, warmth, tenderness, no crepitus. : scrotum edema BACK: Nontender without obvious deformity. No CVA tenderness. Alert, awake, oriented 3, moves extremities. No focal deficits. A/P Problem List: (1) Sepsis affecting skin ICD Code: L02.91 Status: Acute (2) Sepsis ICD Code: A41.9 Status: Acute (3) Left leg cellulitis ICD Code: L03.116 Status: Acute (4) Scrotal edema ICD Code: N50.89 Status: Acute (5) DM (diabetes mellitus) ICD Code: E11.9 Status: Acute (6) Cirrhosis ICD Code: K74.60 Status: Acute (7) Ascites ICD Code: R18.8 Status: Acute (8) Anasarca ICD Code: R60.1 Status: Acute (9) Lactic acidosis ICD Code: E87.2 Status: Acute Assessment and Plan This is a-year-old male with history of anasarca and ascites secondary to cirrhosis presenting with left lower extremity pain. Severe sepsis secondary to left lower extremity cellulitis- patient with leukopenia, tachycardia, lactic acidosis, and obvious source of infection. Chest x-ray unremarkable. Also need to rule out SBP. Check ultrasound, possible need for paracentesis. Continue vancomycin, cefepime, blood follow-up culture results. Recent history of Acute Epididymitis & current Scrotal Edema: -Previously seen by urology, completed Levaquin. Continue to elevate scrotum. Pain control, on [place]. Headache likely from caffeine withdrawal-patient instructed to get coffee this morning. Anasarca, ascites secondary to liver cirrhosis-history of hepatitis C, follow- up ultrasound for possible paracenteses, continue Bumex and Aldactone. Diabetes mellitus-hold oral hypoglycemic agents, continue statin scale insulin. Pancytopenia-likely secondary to consumptive coagulopathy/splenomegaly, monitor. Recheck ABC tomorrow Anemia-possibly with iron deficiency anemia with increased RDW, check iron panel DVT prophylaxis: Pharmacological prophylaxis contraindicated because of anemia and pancytopenia. SCDs contraindicated because of cellulitis. Ambulate daily. Discharge Planning Discharge home when medically ready Jose C Pearson MD Jun 22, 2016 07:58
[2016-06-22] MEDS: BUMETANIDE 1 MG TAB PO SCH (08:00)
[2016-06-22] MEDS: LACTOBACILLUS ACIDOPHILUS TAB PO SCH ×2 (08:00→21:00)
[2016-06-22] MEDS: SODIUM CHLORIDE 0.9% FLUSH 10 ML FLUSH IV FLUSH SCH ×2 (08:00→21:00)
[2016-06-22 08:30] VITALS: BP 132/67; PULSE 94; RESP 20; TEMP 97.5; O2SAT 95
[2016-06-22] MEDS ORDERED: NON-FORMULARY DRUG (Ipratropium-Albuterol Inh (Combivent Respimat Inh) 1 PUFF) INH SCH (09:00)
[2016-06-22] MEDS ORDERED: VANCOMYCIN INJ 1,000 MG in SODIUM CHLOR 0.9% 250 ML INJ 250 ML IV SCH (09:00)
[2016-06-22] MEDS: CEFEPIME INJ 2,000 MG in SODIUM CHLORIDE 0.9% INJ 100 ML IV SCH ×2 (10:10→20:48)
[2016-06-22] MEDS: TIOTROPIUM BROMIDE 18 MCG INH INH SCH (10:11)
[2016-06-22] MEDS: ALBUTEROL SULFATE 90 MCG/ACT HFA 18 GM INHALER INH SCH ×4 (10:11→21:00)
[2016-06-22] MEDS: SPIRONOLACTONE 100 MG TAB PO SCH (10:23)
--- NOTE | 2016-06-22 11:25 | RADRPT ---
EXAM DATE/TIME: 06/22/2016 08:46 [facility] COMPARISON: No previous studies available for comparison. INDICATIONS : Abdominal pain. MEDICAL HISTORY : Congestive heart failure. Hypertension. Chronic obstructive pulmonary disease. Diabetes. Hepatitis C. Cirrhosis SURGICAL HISTORY : Exploratory abdominal surgery. ENCOUNTER: Subsequent ACUITY: 2 months PAIN SCORE: 7/10 LOCATION: Bilateral upper quadrant MEASUREMENTS: LIVER: 16.7 cm length COMMON DUCT: 3 mm RIGHT KIDNEY: 11.4 x 6.4 x 6.3 cm LEFT KIDNEY: 13.9 x 4.7 x 5.4 cm SPLEEN: 24.3 x 9.9 x 8.3 cm length AORTA: 2.47 cm maximal FINDINGS: Ultrasound of the upper abdomen demonstrates increased echogenicity of the liver compatible with fatt y infiltration or hepatocellular disease. The spleen is unremarkable. There is a single stone within the gallbladder measuring 6 mm with a small amount of pericholecystic fluid. Which is nonspecific in the face of ascites. The spleen is markedly enlarged. The pancreas demonstrates no evidence of mass a nd there is no dilatation of the pancreatic duct. CONCLUSION: 1. Cholelithiasis. 2. Mild ascites 3. Echogenic liver compatible with fatty infiltration or hepatocellular disease. 4. Splenomegaly Memo Rodriges MD on June 22, 2016 at 11:22 Board Certified Radiologist. This report was verified electronically.
[2016-06-22 11:59] VITALS: BP 109/58; PULSE 92; RESP 17; TEMP 97.1; O2SAT 89
--- NOTE | 2016-06-22 14:22 | EKG ---
Date Performed: 06/21/2016 Time Performed: 23:04:57 PTAGE: 61 years EKG: SINUS TACHYCARDIA ABNORMAL RHYTHM ECG NO PREVIOUS TRACING DOCTOR: Alfonso Brandt Interpretating Date/Time 06/22/2016 14:21:26
[2016-06-22 15:41] VITALS: BP 103/58; PULSE 88; RESP 19; TEMP 98.7; O2SAT 95
[2016-06-22 20:14] VITALS: BP 112/54; PULSE 86; RESP 18; TEMP 98.4; O2SAT 93
[2016-06-22] MEDS: VANCOMYCIN INJ 1,700 MG in SODIUM CHLORID 0.9% 500 ML INJ 500 ML IV SCH (23:00)
[2016-06-23] VITALS: BP 113/55; PULSE 87; RESP 18; TEMP 98.6; O2SAT 96
[2016-06-23] MEDS: ACETAMINOPHEN/HYDROcodone 325 MG/10 MG TAB PO PRN ×6 (01:09→22:11)
[2016-06-23 03:05] VITALS: BP 103/54; PULSE 85; RESP 18; TEMP 98; O2SAT 93
[2016-06-23] MEDS: INSULIN ASPART SUPPLEMENTAL SCALE SQ SCH ×4 (06:51→22:29)
[2016-06-23 07:44] LABS: AUTOMATED NEUTROPHIL # 1.1 TH/MM3 (1.8-7.7); BASOPHIL % 0.4 % (0.0-2.0); EOSINOPHIL # 0.1 TH/MM3 (0-0.4); EOSINOPHIL % 2.7 % (0.0-4.0); HEMATOCRIT 26.6 % (39.0-51.0); LYMPH % 23.9 % (9.0-44.0); LYMPHOCYTE # 0.5 TH/MM3 (1.0-4.8); MEAN CELL VOLUME 91.2 FL (80.0-100.0); MEAN CORPUSCULAR HEMOGLOBIN 29.6 PG (27.0-34.0); MEAN CORPUSCULAR HGB CONC 32.5 % (32.0-36.0); MONO % 14.4 % (0.0-8.0); NEUT % 58.6 % (16.0-70.0); PLATELET COUNT 58 TH/MM3 (150-450); RED BLOOD COUNT 2.92 MIL/MM3 (4.50-5.90); WHITE BLOOD COUNT 1.9 TH/MM3 (4.0-11.0)
[2016-06-23 07:58] LABS: HEMO FLAGS AUTO DIFF
[2016-06-23 08:03] VITALS: BP 120/62; PULSE 82; RESP 18; TEMP 97.8; O2SAT 97
[2016-06-23 08:06] LABS: FERRITIN 51 NG/ML (26-388)
[2016-06-23 08:10] LABS: ANION GAP 7 MEQ/L (5-15); BICARBONATE 29.3 MEQ/L (21.0-32.0); BLOOD UREA NITROGEN 13 MG/DL (7-18); CHLORIDE 100 MEQ/L (98-107); GLOMERULAR FILTRATION RATE 130 ML/MIN (>89); SODIUM (NA) 136 MEQ/L (136-145); TRANSFERRIN IRON PROFILE 242 MG/DL (200-360)
[2016-06-23] MEDS: CEFEPIME INJ 2,000 MG in SODIUM CHLORIDE 0.9% INJ 100 ML IV SCH ×2 (08:52→22:09)
[2016-06-23] MEDS: LACTOBACILLUS ACIDOPHILUS TAB PO SCH ×2 (08:54→22:10)
[2016-06-23] MEDS: BUMETANIDE 1 MG TAB PO SCH (08:54)
[2016-06-23] MEDS: SPIRONOLACTONE 100 MG TAB PO SCH (08:54)
[2016-06-23] MEDS: TIOTROPIUM BROMIDE 18 MCG INH INH SCH (08:55)
[2016-06-23] MEDS: ALBUTEROL SULFATE 90 MCG/ACT HFA 18 GM INHALER INH SCH ×4 (08:55→22:08)
[2016-06-23] MEDS: SODIUM CHLORIDE 0.9% FLUSH 10 ML FLUSH IV FLUSH SCH ×2 (08:56→22:10)
[2016-06-23 09:31] LABS: BANDS 3 % (0-6); EOSINOPHILS 1 % (0-4); NEUTROPHIL # MANUAL DIFF 1.2 TH/MM3 (1.8-7.7); PLATELET ESTIMATE SMEAR LOW (NORMAL); PLATELET MORPHOLOGY NORMAL (NORMAL); POLYS (SEG NEUTROPHILS) 61 % (16-70); SCAN/DIFF FINAL DIFF MANUAL; WBC DIFF SAMPLE 100
[2016-06-23] MEDS: VANCOMYCIN INJ 1,700 MG in SODIUM CHLORID 0.9% 500 ML INJ 500 ML IV SCH ×2 (10:44→23:32)
[2016-06-23 19:42] VITALS: BP 115/59; PULSE 82; RESP 18; TEMP 98.1; O2SAT 97
[2016-06-23] MEDS ORDERED: PHARMACY ORDERED LAB ONE (20:45)
--- NOTE | 2016-06-23 22:59 | HHI.PR ---
Subjective Remarks Late entry. Patient seen around 9 AM He reports that he is feeling tired. Erythema is unchanged today. urinating a lot. No fevers or chills. Objective Vitals Vital Signs Date Time Temp Pulse Resp B/P Pulse Ox O2 Delivery O2 Flow Rate FiO2 06/23/16 19:42 98.1 82 18 115/59 97 06/23/16 08:03 97.8 82 18 120/62 97 06/23/16 06:12 18 06/23/16 03:05 98.0 85 18 103/54 93 06/23/16 00:00 98.6 87 18 113/55 96 I/O 06/22/16 06/22/16 06/22/16 06/23/16 06/23/16 06/23/16 07:00 15:00 23:00 07:00 15:00 23:00 Intake Total 200 ml 200 ml Balance 200 ml 200 ml Intake Oral 200 ml 200 ml # Voids 4 3 Result Diagram: 06/23/1671906/23/16719 Procedures GENERAL: NAD SKIN: BLE with some erythema, L>R HEAD: Normocephalic. EYES: No scleral icterus. No injection or drainage. NECK: Supple, trachea midline. No JVD or lymphadenopathy. CARDIOVASCULAR: Regular rate and rhythm without murmurs, gallops, or rubs. RESPIRATORY: Bilateral rhonchi, no wheezing. GASTROINTESTINAL: Distended with a positive fluid wave noted. The patient reports tenderness on palpation related to abdominal distention, no focal tenderness. No tenderness on palpation of McBurney's point. MUSCULOSKELETAL: Bilateral lower extremity edema, about 2-3+, chronic hyperpigmentation of her lower extremity likely secondary from venous stasis. Left calf with erythema, warmth, tenderness, no crepitus. : scrotal edema noted BACK: Nontender without obvious deformity. No CVA tenderness. Alert, awake, oriented 3, moves extremities. No focal deficits. A/P Problem List: (1) Sepsis affecting skin ICD Code: L02.91 Status: Acute (2) Sepsis ICD Code: A41.9 Status: Acute (3) Left leg cellulitis ICD Code: L03.116 Status: Acute (4) Scrotal edema ICD Code: N50.89 Status: Acute (5) DM (diabetes mellitus) ICD Code: E11.9 Status: Acute (6) Cirrhosis ICD Code: K74.60 Status: Acute (7) Ascites ICD Code: R18.8 Status: Acute (8) Anasarca ICD Code: R60.1 Status: Acute (9) Lactic acidosis ICD Code: E87.2 Status: Acute Assessment and Plan 61 year-old male with history of anasarca and ascites secondary to cirrhosis presenting with left lower extremity pain. Severe sepsis secondary to left lower extremity cellulitis- patient with leukopenia, tachycardia, lactic acidosis, and obvious source of infection. Chest x-ray unremarkable. US shows mild ascites. Continue vancomycin, cefepime , blood follow-up culture results. Recent history of Acute Epididymitis & current Scrotal Edema: -Previously seen by urology, completed Levaquin. Continue to elevate scrotum. Pain control, on [place]. Anasarca, ascites secondary to liver cirrhosis-history of hepatitis C, continue Bumex and Aldactone. He is responding well to diuresis. Diabetes mellitus-hold oral hypoglycemic agents, continue sliding scale insulin. Pancytopenia-likely secondary to consumptive coagulopathy/splenomegaly, monitor. Follow CBC tomorrow Anemia-possibly with iron deficiency anemia with increased RDW, check iron panel DVT prophylaxis: Pharmacological prophylaxis contraindicated because of anemia and pancytopenia. SCDs contraindicated because of cellulitis. Ambulate daily. Neena Javier MD Jun 23, 2016 22:59
[2016-06-24] VITALS (7 sets, daily range): BP systolic 103–145; BP diastolic 53–69; PULSE 78–96; RESP 18–20; TEMP 97.3–98.6; O2SAT 92–100
[2016-06-24] MEDS: ACETAMINOPHEN/HYDROcodone 325 MG/10 MG TAB PO PRN ×3 (02:53→21:29)
[2016-06-24 05:27] LABS: HEMATOCRIT 25.5 % (39.0-51.0); MEAN CELL VOLUME 89.8 FL (80.0-100.0); MEAN CORPUSCULAR HEMOGLOBIN 30.3 PG (27.0-34.0); MEAN CORPUSCULAR HGB CONC 33.7 % (32.0-36.0); PLATELET COUNT 61 TH/MM3 (150-450); RED BLOOD COUNT 2.83 MIL/MM3 (4.50-5.90); RED CELL DISTRIBUTION WIDTH 16.8 % (11.6-17.2); WHITE BLOOD COUNT 1.9 TH/MM3 (4.0-11.0)
[2016-06-24 05:36] LABS: REVIEW FLAG FINAL
[2016-06-24 05:55] LABS: BICARBONATE 30.2 MEQ/L (21.0-32.0); POTASSIUM 3.9 MEQ/L (3.5-5.1)
[2016-06-24] MEDS: INSULIN ASPART SUPPLEMENTAL SCALE SQ SCH ×3 (06:36→21:33)
[2016-06-24] MEDS: SPIRONOLACTONE 100 MG TAB PO SCH (08:44)
[2016-06-24] MEDS: BUMETANIDE 1 MG TAB PO SCH (08:44)
[2016-06-24] MEDS: TIOTROPIUM BROMIDE 18 MCG INH INH SCH (08:45)
[2016-06-24] MEDS: SODIUM CHLORIDE 0.9% FLUSH 10 ML FLUSH IV FLUSH SCH ×2 (08:45→21:32)
[2016-06-24] MEDS: LACTOBACILLUS ACIDOPHILUS TAB PO SCH ×2 (08:45→21:30)
[2016-06-24] MEDS: ALBUTEROL SULFATE 90 MCG/ACT HFA 18 GM INHALER INH SCH ×3 (08:46→21:33)
[2016-06-24] MEDS: VANCOMYCIN INJ 1,700 MG in SODIUM CHLORID 0.9% 500 ML INJ 500 ML IV SCH ×2 (08:47→22:43)
--- NOTE | 2016-06-24 10:05 | HHI.PR ---
Subjective Remarks Follow up left leg cellulitis. Patient states the swelling is about the same as yesterday. States he is eating ok, he is having some discomfort in bilateral lower extremities that radiate to his hips due to the swelling. Denies any chest pain or sob. Patient was seen on 06/06/16 for similar admission, 2D echo was showed mitral regurgitation, EF 55-60%. Objective Vitals Vital Signs Date Time Temp Pulse Resp B/P Pulse Ox O2 Delivery O2 Flow Rate FiO2 06/24/16 07:51 84 20 128/59 96 06/24/16 04:26 84 18 103/55 92 06/24/16 03:55 21 06/24/16 00:29 97.9 78 20 124/60 99 06/23/16 19:42 98.1 82 18 115/59 97 I/O 06/23/16 06/23/16 06/23/16 06/24/16 06/24/16 06/24/16 07:00 15:00 23:00 07:00 15:00 23:00 Intake Total 200 ml Balance 200 ml Intake Oral 200 ml # Voids 3 Result Diagram: 06/24/16 0446 06/24/16 0446 Imaging Last Impressions Abdomen Ultrasound 06/22/16 0000 Signed Impressions: Service Date/Time: Wednesday, June 22, 2016 08:46 - CONCLUSION: 1. Cholelithiasis. 2. Mild ascites 3. Echogenic liver compatible with fatty infiltration or hepatocellular disease. 4. Splenomegaly Memo Rodriges MD Chest X-Ray 06/21/167 Signed Impressions: Service Date/Time: Tuesday, June 21, 2016 22:31 - CONCLUSION: Visualized portion of the lungs are clear. Sundeep Sheikh MD Procedures GENERAL: Well nourished patient in no distress SKIN: BLE with some erythema, L>R, Would to right carney, with no drainage HEAD: Normocephalic. EYES: No scleral icterus. No injection or drainage. NECK: Supple, trachea midline. No JVD or lymphadenopathy. CARDIOVASCULAR: Regular rate and rhythm without murmurs, gallops, or rubs. RESPIRATORY: Bilateral rhonchi, no wheezing. GASTROINTESTINAL: Distended with a positive fluid wave noted. The patient reports tenderness on palpation related to abdominal distention, no focal tenderness. MUSCULOSKELETAL: Bilateral lower extremity edema, about 2-3+, chronic hyperpigmentation of her lower extremity likely secondary from venous stasis. Bilateral calf with erythema, warmth, tenderness, no crepitus. L>R : scrotal edema noted Alert, awake, oriented 3, moves extremities. No focal deficits. Medications and IVs Current Medications Medications (Trade) Dose Ordered Sig/Tammie Route Start Time Stop Time Status Last Admin (NS Flush) 2 ml UNSCH PRN IV FLUSH 06/22/16 02:00 (NS Flush) 2 ml BID IV FLUSH 06/22/16 09:00 06/24/16 08:45 (Tylenol) 650 mg Q4H PRN PO 06/22/16 02:00 (Zofran Inj) 4 mg Q6H PRN IVP 06/22/16 02:00 (Tylenol) 650 mg Q6H PRN PO 06/22/16 02:00 (Narcan Inj) 0.4 mg UNSCH PRN IV 06/22/16 02:00 (D50w (Vial) Inj) 25 ml UNSCH PRN IV PUSH 06/22/16 02:00 (Glucagon Inj) 1 mg UNSCH PRN OTHER 06/22/16 02:00 (Bumetanide) 1 mg DAILY PO 06/22/16 09:00 06/24/16 08:44 Spironolactone 100 mg 100 mg DAILY PO 06/22/16 09:00 06/24/16 08:44 (Vancomycin Consult Pharmacy) 0 ml @ 0 mls/hr UNSCH OTHER 06/22/16 02:30 (Lactinex) 1 tab Q12HR PO 06/22/16 09:00 06/24/16 08:45 ([place]man 10-325 Mg) 1 tab Q4H PRN PO 06/22/16 02:30 06/24/16 08:45 (Vasotec Inj) 1.25 mg Q6H PRN IV PUSH 06/22/16 03:00 (Spiriva Inh) 18 mcg DAILY INH 06/22/16 09:00 06/24/16 08:45 Albuterol Sulfate 2 puff 2 puff QID INH 06/22/16 09:00 06/24/16 08:46 Vancomycin HCl 1700 mg/Sodium Chloride 517 ml @ 258.5 mls/ hr Q12H IV 06/22/16 21:00 06/24/16 08:47 (Maxipime Inj/NS Inj) 100 ml @ 200 mls/hr Q12H IV 06/23/16 22:00 06/23/16 22:09 Miscellaneous Information SPECIFIC LAB TO BE ... ONCE ONCE .XX 06/25/16 08:45 06/25/16 08:46 A/P Problem List: (1) Sepsis affecting skin ICD Code: L02.91 Status: Acute (2) Sepsis ICD Code: A41.9 Status: Acute (3) Left leg cellulitis ICD Code: L03.116 Status: Acute (4) Scrotal edema ICD Code: N50.89 Status: Acute (5) DM (diabetes mellitus) ICD Code: E11.9 Status: Acute (6) Cirrhosis ICD Code: K74.60 Status: Acute (7) Ascites ICD Code: R18.8 Status: Acute (8) Anasarca ICD Code: R60.1 Status: Acute (9) Lactic acidosis ICD Code: E87.2 Status: Acute Assessment and Plan 61 year-old male with history of anasarca and ascites secondary to cirrhosis presenting with left lower extremity pain. Severe sepsis secondary to left lower extremity cellulitis- patient with leukopenia, tachycardia, lactic acidosis, and obvious source of infection. Chest x-ray unremarkable. US shows mild ascites. Monitor CBC Cellulitis-LLE: Continue vancomycin, cefepime, blood follow-up culture results. Consult ID for recommendations. May need podiatry consult in future. Bilateral Doppler US ordered Recent history of Acute Epididymitis & current Scrotal Edema: -Previously seen by urology, completed Levaquin. Continue to elevate scrotum. Pain control, on [place]. Anasarca, ascites secondary to liver cirrhosis-history of hepatitis C, continue Bumex and Aldactone. He is responding well to diuresis. Diabetes mellitus-hold oral hypoglycemic agents, continue sliding scale insulin. Pancytopenia-likely secondary to consumptive coagulopathy/splenomegaly, monitor. Follow CBC tomorrow Anemia-possibly with iron deficiency anemia with increased RDW, iron panel shows iron 30, % 8.9. Start iron supplement 325mg daily, will need follow up outpatient. DVT prophylaxis: Pharmacological prophylaxis contraindicated because of anemia and pancytopenia. SCDs contraindicated because of cellulitis. Ambulate daily. Written by Kamini Pastrana, acting as scribe for [[place]] on 06/24/16 at 09:50. This note was transcribed by micky CONTRERAS. I, Dr. Sandra Whitehead personally performed the history, physical exam, and medical decision making; and confirmed the accuracy of the information in the transcribed note. Authenticated by Dr. Sandra Whitehead on 06/24/16 at 09:50. Discharge Planning Pending SNF placement Kamini Pastrana Jun 24, 2016 10:05 Sandra Whitehead MD Jun 24, 2016 14:39
[2016-06-24] MEDS: CEFEPIME INJ 2,000 MG in SODIUM CHLORIDE 0.9% INJ 100 ML IV SCH ×2 (11:26→21:32)
--- NOTE | 2016-06-24 11:28 | RADRPT ---
EXAM DATE/TIME: 06/24/2016 10:17 [facility] COMPARISON: No previous studies available for comparison. INDICATIONS : Bilateral leg pain. MEDICAL HISTORY : Congestive heart failure. Hypertension. Chronic obstructive pulmonary disease. Asthma. Diabetes. Post traumatic stress disorder. Hepatitis C. SURGICAL HISTORY : Exploratory surgery. Blood transfusion. ENCOUNTER: Initial ACUITY: 2 months PAIN SCORE: 10/10 LOCATION: Bilateral leg. TECHNIQUE: Venous ultrasound of the left and right leg was performed from the inguinal ligament to the proximal calf. Real-time, color Doppler and spectral tracing, compression and augmentation techniques were us ed. FINDINGS: RIGHT LEG: There is normal compressibility of the deep venous system from the inguinal region to the proximal ca lf. No echogenic clot is seen in the lumen of the common femoral, femoral, popliteal, and posterior tibial veins. There is a normal response of the venous system to proximal and distal augmentation an d respiration. 4 cm popliteal cyst is noted. LEFT LEG: There is normal compressibility of the deep venous system from the inguinal region to the proximal ca lf. No echogenic clot is seen in the lumen of the common femoral, femoral, popliteal, and posterior tibial veins. There is a normal response of the venous system to proximal and distal augmentation an d respiration. 5.8 cm popliteal cyst is noted. CONCLUSION: Negative for deep venous thrombosis. Bilateral popliteal cysts. Donte Wilson MD FACR on June 24, 2016 at 11:25 Board Certified Radiologist. This report was verified electronically.
[2016-06-24] MEDS: FERROUS SULFATE 325 MG (65 MG ELEMENTAL IRON) TAB PO SCH (13:14)
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
[2016-06-25] VITALS: BP 114/58; PULSE 80; RESP 18; TEMP 98.2; O2SAT 96
[2016-06-25] MEDS: ACETAMINOPHEN/HYDROcodone 325 MG/10 MG TAB PO PRN ×6 (01:31→22:17)
[2016-06-25 04:00] VITALS: BP 120/58; PULSE 83; RESP 18; TEMP 98.3; O2SAT 97
[2016-06-25] MEDS: INSULIN ASPART SUPPLEMENTAL SCALE SQ SCH ×4 (06:20→22:10)
[2016-06-25 06:46] LABS: AUTOMATED NEUTROPHIL # 0.9 TH/MM3 (1.8-7.7); BASOPHIL % 0.2 % (0.0-2.0); EOSINOPHIL # 0.1 TH/MM3 (0-0.4); HEMATOCRIT 26.3 % (39.0-51.0); LYMPH % 28.9 % (9.0-44.0); LYMPHOCYTE # 0.5 TH/MM3 (1.0-4.8); MEAN CELL VOLUME 88.8 FL (80.0-100.0); MEAN CORPUSCULAR HEMOGLOBIN 29.7 PG (27.0-34.0); MEAN CORPUSCULAR HGB CONC 33.4 % (32.0-36.0); MONO % 18.1 % (0.0-8.0); NEUT % 49.8 % (16.0-70.0); PLATELET COUNT 66 TH/MM3 (150-450); RED BLOOD COUNT 2.96 MIL/MM3 (4.50-5.90); RED CELL DISTRIBUTION WIDTH 17.3 % (11.6-17.2); WHITE BLOOD COUNT 1.9 TH/MM3 (4.0-11.0)
[2016-06-25 06:55] LABS: BICARBONATE 30.1 MEQ/L (21.0-32.0)
[2016-06-25 07:01] LABS: HEMO FLAGS AUTO DIFF
[2016-06-25 07:39] LABS: BANDS 4 % (0-6); BASOPHILS 1 % (0-2); EOSINOPHILS 1 % (0-4); NEUTROPHIL # MANUAL DIFF 1.2 TH/MM3 (1.8-7.7); POLYS (SEG NEUTROPHILS) 60 % (16-70); WBC DIFF SAMPLE 100
[2016-06-25 07:40] LABS: PLATELET ESTIMATE SMEAR LOW (NORMAL); PLATELET MORPHOLOGY NORMAL (NORMAL)
[2016-06-25 07:42] LABS: OVALOCYTES 1+ (NORMAL); SCAN/DIFF FINAL DIFF MANUAL
[2016-06-25 08:00] VITALS: BP 110/56; PULSE 81; RESP 16; TEMP 97.8; O2SAT 98
[2016-06-25] MEDS ORDERED: PHARMACY ORDERED LAB ONE (08:45)
[2016-06-25] MEDS: FERROUS SULFATE 325 MG (65 MG ELEMENTAL IRON) TAB PO SCH (09:06)
[2016-06-25] MEDS: BUMETANIDE 1 MG TAB PO SCH (09:06)
[2016-06-25] MEDS: LACTOBACILLUS ACIDOPHILUS TAB PO SCH ×2 (09:06→22:10)
[2016-06-25] MEDS: SPIRONOLACTONE 100 MG TAB PO SCH (09:08)
[2016-06-25] MEDS: SODIUM CHLORIDE 0.9% FLUSH 10 ML FLUSH IV FLUSH SCH ×2 (09:08→22:11)
[2016-06-25] MEDS: CEFEPIME INJ 2,000 MG in SODIUM CHLORIDE 0.9% INJ 100 ML IV SCH ×2 (09:09→22:09)
[2016-06-25] MEDS: ALBUTEROL SULFATE 90 MCG/ACT HFA 18 GM INHALER INH SCH ×4 (09:10→22:10)
[2016-06-25] MEDS: TIOTROPIUM BROMIDE 18 MCG INH INH SCH (10:02)
[2016-06-25 12:00] VITALS: BP 125/57; PULSE 77; RESP 18; TEMP 97.4; O2SAT 99
--- NOTE | 2016-06-25 12:52 | HHI.PR ---
Subjective Remarks Follow up left leg cellulitis. Patient seen and examined sitting in the chair. Patient states he is still having bilateral lower extremity pain, and he is requesting [place] 10mg. He denies any chest pain or sob. States he is eating well. Objective Vitals Vital Signs Date Time Temp Pulse Resp B/P Pulse Ox O2 Delivery O2 Flow Rate FiO2 06/25/16 12:00 97.4 77 18 125/57 99 06/25/16 09:14 Room Air 06/25/16 08:00 97.8 81 16 110/56 98 06/25/16 04:00 98.3 83 18 120/58 97 06/25/16 00:00 98.2 80 18 114/58 96 06/24/16 20:30 Room Air 06/24/16 20:00 96 06/24/16 20:00 97.3 91 20 145/69 99 06/24/16 19:47 94 06/24/16 19:29 Room Air 06/24/16 17:30 97.4 82 20 136/66 96 06/24/16 15:36 98.6 81 18 108/53 100 I/O 06/24/16 06/24/16 06/24/16 06/25/16 06/25/16 06/25/16 07:00 15:00 23:00 07:00 15:00 23:00 Intake Total 480 ml 960 ml Output Total 1000 ml 2000 ml Balance -520 ml -1040 ml Intake Oral 480 ml 960 ml Output Urine Total 1000 ml 2000 ml # Bowel Movements 2 0 Result Diagram: 06/25/16 0603 06/25/16 0603 Imaging Last Impressions Lower Extremity Ultrasound 06/24/16 0000 Signed Impressions: Service Date/Time: Friday, June 24, 2016 10:17 - CONCLUSION: Negative for deep venous thrombosis. Bilateral popliteal cysts. Donte Wilson MD FACR Abdomen Ultrasound 06/22/16 0000 Signed Impressions: Service Date/Time: Wednesday, June 22, 2016 08:46 - CONCLUSION: 1. Cholelithiasis. 2. Mild ascites 3. Echogenic liver compatible with fatty infiltration or hepatocellular disease. 4. Splenomegaly Memo Rodriges MD Chest X-Ray 06/21/16 8527 Signed Impressions: Service Date/Time: Tuesday, June 21, 2016 22:31 - CONCLUSION: Visualized portion of the lungs are clear. Sundeep Sheikh MD Objective Remarks GENERAL: Well nourished patient in no distress SKIN: BLE with some erythema, L>R, Would to right carney, with no drainage HEAD: Normocephalic. EYES: No scleral icterus. No injection or drainage. NECK: Supple, trachea midline. No JVD or lymphadenopathy. CARDIOVASCULAR: Regular rate and rhythm without murmurs, gallops, or rubs. RESPIRATORY: Bilateral rhonchi, no wheezing. GASTROINTESTINAL: Distended with a positive fluid wave noted. The patient reports tenderness on palpation related to abdominal distention, no focal tenderness. MUSCULOSKELETAL: Bilateral lower extremity edema, about 2-3+, chronic hyperpigmentation of her lower extremity likely secondary from venous stasis. Bilateral calf with erythema, warmth, tenderness, no crepitus. L>R, improving slightly : scrotal edema noted Alert, awake, oriented 3, moves extremities. No focal deficits. Medications and IVs Current Medications Medications (Trade) Dose Ordered Sig/Tammie Route Start Time Stop Time Status Last Admin (NS Flush) 2 ml UNSCH PRN IV FLUSH 06/22/16 02:00 (NS Flush) 2 ml BID IV FLUSH 06/22/16 09:00 06/25/16 09:08 (Tylenol) 650 mg Q4H PRN PO 06/22/16 02:00 (Zofran Inj) 4 mg Q6H PRN IVP 06/22/16 02:00 (Tylenol) 650 mg Q6H PRN PO 06/22/16 02:00 (Narcan Inj) 0.4 mg UNSCH PRN IV 06/22/16 02:00 (D50w (Vial) Inj) 25 ml UNSCH PRN IV PUSH 06/22/16 02:00 (Glucagon Inj) 1 mg UNSCH PRN OTHER 06/22/16 02:00 (Bumetanide) 1 mg DAILY PO 06/22/16 09:00 06/25/16 09:06 Spironolactone 100 mg 100 mg DAILY PO 06/22/16 09:00 06/25/16 09:08 (Vancomycin Consult Pharmacy) 0 ml @ 0 mls/hr UNSCH OTHER 06/22/16 02:30 (Lactinex) 1 tab Q12HR PO 06/22/16 09:00 06/25/16 09:06 ([place] 10-325 Mg) 1 tab Q4H PRN PO 06/22/16 02:30 06/25/16 09:22 (Vasotec Inj) 1.25 mg Q6H PRN IV PUSH 06/22/16 03:00 (Spiriva Inh) 18 mcg DAILY INH 06/22/16 09:00 06/25/16 10:02 Albuterol Sulfate 2 puff 2 puff QID INH 06/22/16 09:00 06/25/16 09:10 (Maxipime Inj/NS Inj) 100 ml @ 200 mls/hr Q12H IV 06/23/16 22:00 06/25/16 09:09 Ferrous Sulfate 325 mg 325 mg DAILY PO 06/24/16 11:00 06/25/16 09:06 (Vancomycin Inj/ NS 500 ml Inj) 515 ml @ 258.5 mls/ hr Q18H IV 06/25/16 18:00 Miscellaneous Information SPECIFIC LAB TO BE DRAWN:VANCOMYCIMN TROUGH DATE TO... ONCE ONCE .XX 06/27/16 05:45 06/27/16 05:46 A/P Problem List: (1) Sepsis affecting skin ICD Code: L02.91 Status: Acute (2) Sepsis ICD Code: A41.9 Status: Acute (3) Left leg cellulitis ICD Code: L03.116 Status: Acute (4) Scrotal edema ICD Code: N50.89 Status: Acute (5) DM (diabetes mellitus) ICD Code: E11.9 Status: Acute (6) Cirrhosis ICD Code: K74.60 Status: Acute (7) Ascites ICD Code: R18.8 Status: Acute (8) Anasarca ICD Code: R60.1 Status: Acute (9) Lactic acidosis ICD Code: E87.2 Status: Acute Assessment and Plan 61 year-old male with history of anasarca and ascites secondary to cirrhosis presenting with left lower extremity pain. Severe sepsis secondary to left lower extremity cellulitis- patient with leukopenia, tachycardia, lactic acidosis, and obvious source of infection. Chest x-ray unremarkable. US shows mild ascites. Monitor CBC, leukopenia unchanged Cellulitis-LLE: DVT negative. Continue vancomycin, cefepime, blood follow-up culture results. ID recommends cont antibiotics, elevate legs and compression stockings. May need podiatry consult in future. Add norco 10mg for pain 5-10, 7.5mg 1-4 Recent history of Acute Epididymitis & current Scrotal Edema: -Previously seen by urology, completed Levaquin. Continue to elevate scrotum. Pain control, on [place]. Anasarca, ascites secondary to liver cirrhosis-history of hepatitis C, continue Bumex and Aldactone. He is responding well to diuresis. Diabetes mellitus-hold oral hypoglycemic agents, continue sliding scale insulin. Pancytopenia-likely secondary to consumptive coagulopathy/splenomegaly, monitor. Follow CBC tomorrow Anemia-possibly with iron deficiency anemia with increased RDW, iron panel shows iron 30, % 8.9. Cont iron supplement 325mg daily, will need follow up outpatient. DVT prophylaxis: Pharmacological prophylaxis contraindicated because of anemia and pancytopenia. SCDs contraindicated because of cellulitis. Ambulate daily. Written by NAWAF Min acting as scribe for [Ventura] on 06/25/16 at 12: 20. This note was transcribed by scribe Kamini MCCRACKEN. I, Dr. Sandra Whitehead personally performed the history, physical exam, and medical decision making; and confirmed the accuracy of the information in the transcribed note. Authenticated by Dr. Sandra Whitehead on 06/25/16 at 12:20. Discharge Planning Awaiting clinical improvement Kamini Pastrana Jun 25, 2016 12:52 Sandra Whitehead MD Jun 25, 2016 14:45
[2016-06-25] MEDS ORDERED: ACETAMINOPHEN/HYDROcodone 325 MG/5 MG TAB PO PRN (14:45)
[2016-06-25 16:00] VITALS: BP 127/60; PULSE 74; RESP 18; TEMP 97.5; O2SAT 99
[2016-06-25] MEDS: VANCOMYCIN INJ 1,500 MG in SODIUM CHLORID 0.9% 500 ML INJ 500 ML IV SCH (17:18)
[2016-06-25 20:00] VITALS: BP 127/60; PULSE 74; RESP 16; TEMP 97.2; O2SAT 100
[2016-06-26 00:01] VITALS: BP 116/58; PULSE 82; RESP 20; TEMP 97.4; O2SAT 95
[2016-06-26] MEDS: ACETAMINOPHEN/HYDROcodone 325 MG/10 MG TAB PO PRN ×6 (02:19→22:44)
[2016-06-26 04:00] VITALS: BP 105/59; PULSE 83; RESP 20; TEMP 98.4; O2SAT 96
[2016-06-26] MEDS: INSULIN ASPART SUPPLEMENTAL SCALE SQ SCH ×4 (06:03→20:41)
[2016-06-26 08:00] VITALS: BP 128/61; PULSE 84; RESP 18; TEMP 98.1; O2SAT 94
--- NOTE | 2016-06-26 08:14 | HHI.PR ---
Subjective Remarks Patient says LE edema and erythema is improving. No fevers or chills. No n/v/d/ c. Denies chest pain, has some sob with ambulation. Complains of pain in his legs. Doesn't want compression stockings. Objective Vitals Vital Signs Date Time Temp Pulse Resp B/P Pulse Ox O2 Delivery O2 Flow Rate FiO2 06/26/16 08:00 98.1 84 18 128/61 94 06/26/16 04:00 98.4 83 20 105/59 96 06/26/16 00:01 97.4 82 20 116/58 95 06/25/16 20:15 Room Air 06/25/16 20:00 97.2 74 16 127/60 100 06/25/16 16:00 97.5 74 18 127/60 99 06/25/16 12:00 97.4 77 18 125/57 99 06/25/16 09:14 Room Air I/O 06/25/16 06/25/16 06/25/16 06/26/16 06/26/16 06/26/16 07:00 15:00 23:00 07:00 15:00 23:00 Intake Total 960 ml 1200 ml 480 ml 900 ml Output Total 2000 ml Balance -1040 ml 1200 ml 480 ml 900 ml Intake Oral 960 ml 1200 ml 480 ml 900 ml Output Urine Total 2000 ml # Voids 5 2 4 # Bowel Movements 0 1 Result Diagram: 06/25/16 0603 06/25/16 0603 Imaging Last Impressions Lower Extremity Ultrasound 06/24/16 0000 Signed Impressions: Service Date/Time: Friday, June 24, 2016 10:17 - CONCLUSION: Negative for deep venous thrombosis. Bilateral popliteal cysts. Donte Wilson MD FACR Abdomen Ultrasound 06/22/16 0000 Signed Impressions: Service Date/Time: Wednesday, June 22, 2016 08:46 - CONCLUSION: 1. Cholelithiasis. 2. Mild ascites 3. Echogenic liver compatible with fatty infiltration or hepatocellular disease. 4. Splenomegaly Memo Rodriges MD Chest X-Ray 06/21/162206 Signed Impressions: Service Date/Time: Tuesday, June 21, 2016 22:31 - CONCLUSION: Visualized portion of the lungs are clear. Sundeep Sheikh MD Objective Remarks GENERAL: Well nourished patient in no distress SKIN: BLE with some erythema, L>R, Would to right carney, with no drainage HEAD: Normocephalic. EYES: No scleral icterus. No injection or drainage. NECK: Supple, trachea midline. No JVD or lymphadenopathy. CARDIOVASCULAR: Regular rate and rhythm without murmurs, gallops, or rubs. RESPIRATORY: Bilateral rhonchi, no wheezing. GASTROINTESTINAL: Distended with a positive fluid wave noted. The patient reports tenderness on palpation related to abdominal distention, no focal tenderness. MUSCULOSKELETAL: Bilateral lower extremity edema, about 2-3+, chronic hyperpigmentation of her lower extremity likely secondary from venous stasis. Bilateral calf with erythema, warmth, tenderness, no crepitus. L>R, improving slightly : scrotal edema noted Alert, awake, oriented 3, moves extremities. No focal deficits. A/P Problem List: (1) Sepsis affecting skin ICD Code: L02.91 Status: Acute (2) Sepsis ICD Code: A41.9 Status: Acute (3) Left leg cellulitis ICD Code: L03.116 Status: Acute (4) Scrotal edema ICD Code: N50.89 Status: Acute (5) DM (diabetes mellitus) ICD Code: E11.9 Status: Acute (6) Cirrhosis ICD Code: K74.60 Status: Acute (7) Ascites ICD Code: R18.8 Status: Acute (8) Anasarca ICD Code: R60.1 Status: Acute (9) Lactic acidosis ICD Code: E87.2 Status: Acute Assessment and Plan 61 year-old male with history of anasarca and ascites secondary to cirrhosis presenting with left lower extremity pain. Severe sepsis secondary to left lower extremity cellulitis- patient with leukopenia, tachycardia, lactic acidosis, and obvious source of infection. Chest x-ray unremarkable. US shows mild ascites. Monitor CBC, leukopenia unchanged Cellulitis-LLE: DVT negative. Continue vancomycin, cefepime, blood follow-up culture results. ID recommends cont antibiotics, elevate legs and compression stockings. May need podiatry consult in future. Add norco 10mg for pain 5-10, 7.5mg 1-4 Recent history of Acute Epididymitis & current Scrotal Edema: -Previously seen by urology, completed Levaquin. Continue to elevate scrotum. Pain control, on [place]. Anasarca, ascites secondary to liver cirrhosis-history of hepatitis C, continue Bumex and Aldactone. He is responding well to diuresis. Diabetes mellitus-hold oral hypoglycemic agents, continue sliding scale insulin. Pancytopenia-likely secondary to consumptive coagulopathy/splenomegaly, monitor. Follow CBC tomorrow Anemia-possibly with iron deficiency anemia with increased RDW, iron panel shows iron 30, % 8.9. Cont iron supplement 325mg daily, will need follow up outpatient. DVT prophylaxis: Pharmacological prophylaxis contraindicated because of anemia and pancytopenia. SCDs contraindicated because of cellulitis. Ambulate daily. Discharge Planning Awaiting clinical improvement and clearance by consultants Sandra Whitehead MD Jun 26, 2016 08:13
[2016-06-26] MEDS: SPIRONOLACTONE 100 MG TAB PO SCH (08:28)
[2016-06-26] MEDS: LACTOBACILLUS ACIDOPHILUS TAB PO SCH ×2 (08:28→20:40)
[2016-06-26] MEDS: BUMETANIDE 1 MG TAB PO SCH (08:28)
[2016-06-26] MEDS: SODIUM CHLORIDE 0.9% FLUSH 10 ML FLUSH IV FLUSH SCH ×2 (08:28→20:41)
[2016-06-26] MEDS: FERROUS SULFATE 325 MG (65 MG ELEMENTAL IRON) TAB PO SCH (08:28)
[2016-06-26] MEDS: TIOTROPIUM BROMIDE 18 MCG INH INH SCH (08:30)
[2016-06-26] MEDS: ALBUTEROL SULFATE 90 MCG/ACT HFA 18 GM INHALER INH SCH ×4 (08:31→20:41)
[2016-06-26] MEDS: CEFEPIME INJ 2,000 MG in SODIUM CHLORIDE 0.9% INJ 100 ML IV SCH (09:43)
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
[2016-06-26] MEDS: LEVOFLOXACIN 750 MG TAB PO SCH (11:54)
[2016-06-26 12:00] VITALS: BP 127/59; PULSE 82; RESP 16; TEMP 97.5; O2SAT 95
[2016-06-26] MEDS: VANCOMYCIN INJ 1,500 MG in SODIUM CHLORID 0.9% 500 ML INJ 500 ML IV SCH (13:02)
[2016-06-26 16:00] VITALS: BP 108/56; PULSE 74; RESP 18; TEMP 98.1; O2SAT 98
[2016-06-26 20:00] VITALS: BP 113/64; PULSE 78; RESP 18; TEMP 97.7; O2SAT 98
[2016-06-27] VITALS: BP 116/55; PULSE 96; RESP 18; TEMP 98.1; O2SAT 96
[2016-06-27] MEDS: ACETAMINOPHEN/HYDROcodone 325 MG/10 MG TAB PO PRN ×5 (03:47→20:49)
[2016-06-27 04:00] VITALS: BP 130/62; PULSE 99; RESP 18; TEMP 98.6; O2SAT 92
[2016-06-27] MEDS ORDERED: PHARMACY ORDERED LAB ONE (05:45)
[2016-06-27] MEDS: VANCOMYCIN INJ 1,500 MG in SODIUM CHLORID 0.9% 500 ML INJ 500 ML IV SCH (06:38)
[2016-06-27] MEDS: INSULIN ASPART SUPPLEMENTAL SCALE SQ SCH ×4 (06:58→20:53)
[2016-06-27 08:00] VITALS: BP 109/56; PULSE 81; RESP 16; TEMP 98.6; O2SAT 94
[2016-06-27] MEDS: BUMETANIDE 1 MG TAB PO SCH (08:12)
[2016-06-27] MEDS: LEVOFLOXACIN 750 MG TAB PO SCH (08:12)
[2016-06-27] MEDS: FERROUS SULFATE 325 MG (65 MG ELEMENTAL IRON) TAB PO SCH (08:12)
[2016-06-27] MEDS: SPIRONOLACTONE 100 MG TAB PO SCH (08:12)
[2016-06-27] MEDS: TIOTROPIUM BROMIDE 18 MCG INH INH SCH (08:14)
[2016-06-27] MEDS: ALBUTEROL SULFATE 90 MCG/ACT HFA 18 GM INHALER INH SCH ×4 (08:14→20:48)
[2016-06-27] MEDS: SODIUM CHLORIDE 0.9% FLUSH 10 ML FLUSH IV FLUSH SCH ×2 (08:15→20:49)
[2016-06-27] MEDS: LACTOBACILLUS ACIDOPHILUS TAB PO SCH ×2 (08:16→20:49)
[2016-06-27 10:17] LABS: AUTOMATED NEUTROPHIL # 1.1 TH/MM3 (1.8-7.7); BASOPHIL % 0.4 % (0.0-2.0); EOSINOPHIL # 0.1 TH/MM3 (0-0.4); EOSINOPHIL % 2.6 % (0.0-4.0); LYMPH % 25.9 % (9.0-44.0); LYMPHOCYTE # 0.5 TH/MM3 (1.0-4.8); MEAN CELL VOLUME 90.6 FL (80.0-100.0); MEAN CORPUSCULAR HEMOGLOBIN 30.1 PG (27.0-34.0); MEAN CORPUSCULAR HGB CONC 33.2 % (32.0-36.0); NEUT % 52.1 % (16.0-70.0); PLATELET COUNT 65 TH/MM3 (150-450); RED BLOOD COUNT 3.09 MIL/MM3 (4.50-5.90); RED CELL DISTRIBUTION WIDTH 17.6 % (11.6-17.2); WHITE BLOOD COUNT 2.1 TH/MM3 (4.0-11.0)
[2016-06-27 10:22] LABS: HEMO FLAGS AUTO DIFF
[2016-06-27 10:58] LABS: BICARBONATE 29.4 MEQ/L (21.0-32.0); MAGNESIUM 1.6 MG/DL (1.5-2.5); POTASSIUM 3.8 MEQ/L (3.5-5.1)
[2016-06-27 12:00] VITALS: BP 129/69; PULSE 85; RESP 18; TEMP 98.5; O2SAT 95
[2016-06-27 12:14] LABS: OVALOCYTES 1+ (NORMAL); PLATELET ESTIMATE SMEAR LOW (NORMAL); PLATELET MORPHOLOGY NORMAL (NORMAL); SCAN/DIFF AUTO DIFF CONFIRMED
[2016-06-27 16:00] VITALS: BP 112/57; PULSE 71; RESP 18; TEMP 97.8; O2SAT 100
[2016-06-27 20:00] VITALS: BP 118/56; PULSE 79; RESP 20; TEMP 98.2; O2SAT 96
--- NOTE | 2016-06-27 23:28 | HHI.PR ---
Subjective Remarks pt says he feels alright. no cp or SOB. left lower extremity swelling improving slowly Objective Vital Signs Date Time Temp Pulse Resp B/P Pulse Ox O2 Delivery O2 Flow Rate FiO2 06/27/16 20:00 98.2 79 20 118/56 96 06/27/16 18:35 18 06/27/16 18:29 100 Room Air 06/27/16 16:00 97.8 71 18 112/57 100 06/27/16 12:00 98.5 85 18 129/69 95 06/27/16 08:00 98.6 81 16 109/56 94 06/27/16 04:00 98.6 99 18 130/62 92 06/27/16 00:00 98.1 96 18 116/55 96 I/O 06/26/16 06/26/16 06/26/16 06/27/16 06/27/16 06/27/16 07:00 15:00 23:00 07:00 15:00 23:00 Intake Total 900 ml 960 ml 620 ml 480 ml 900 ml 0 ml Output Total 2000 ml 2000 ml 400 ml 3000 ml Balance 900 ml -1040 ml -1380 ml 80 ml -2100 ml 0 ml Intake Oral 900 ml 960 ml 620 ml 480 ml 900 ml IV Total 0 ml Output Urine Total 2000 ml 2000 ml 400 ml 3000 ml # Voids 4 # Bowel Movements 1 0 0 0 Result Diagram: 06/27/1692906/27/1630 Objective Remarks GENERAL: NAD. aaox3 SKIN: Warm and dry. HEAD: Normocephalic. EYES: No scleral icterus. No injection or drainage. NECK: Supple, trachea midline. No JVD. CARDIOVASCULAR: Regular rate and rhythm without murmurs, gallops, or rubs. RESPIRATORY: Breath sounds equal bilaterally. No accessory muscle use. GASTROINTESTINAL: Abdomen soft, non-tender, nondistended. MUSCULOSKELETAL: No cyanosis. 2+ edema bilateral lower extremities. Erythema left lower extremity to mid calf. No broken skin. BACK: Nontender without obvious deformity. No CVA tenderness. A/P Assessment and Plan 61 year-old male with history of anasarca and ascites secondary to cirrhosis presenting with left lower extremity pain. //Severe sepsis secondary to left lower extremity cellulitis- patient with leukopenia, tachycardia, lactic acidosis, and obvious source of infection. Chest x-ray unremarkable. US shows mild ascites. -Continue antibiotics for left lower Leonora cellulitis. //Cellulitis-LLE: DVT negative. Continue vancomycin, cefepime, blood follow-up culture results. ID recommends cont antibiotics, elevate legs and compression stockings. May need podiatry consult in future. Add norco 10mg for pain 5-10, 7.5mg 1-4 = Improving. Continue antibiotics, elevation. //Recent history of Acute Epididymitis & current Scrotal Edema: -Previously seen by urology, completed Levaquin. Continue to elevate scrotum. Pain control , on [place]. //Anasarca, ascites secondary to liver cirrhosis-history of hepatitis C, continue Bumex and Aldactone. = responding well to diuresis. =Continue diuresis. Continue to monitor. //Diabetes mellitus-hold oral hypoglycemic agents, continue sliding scale insulin. = Glucose acceptable. Continue to monitor. //Pancytopenia-likely secondary to consumptive coagulopathy/splenomegaly, monitor. Follow CBC tomorrow //Anemia-possibly with iron deficiency anemia with increased RDW, iron panel shows iron 30, % 8.9. Cont iron supplement 325mg daily, will need follow up outpatient. //DVT prophylaxis: Pharmacological prophylaxis contraindicated because of anemia and pancytopenia. SCDs contraindicated because of cellulitis. Ambulate daily. Discharge Planning when cleared by infectious disease. Sean Monteiro MD Jun 27, 2016 23:28
[2016-06-28] VITALS: BP 116/76; PULSE 106; RESP 20; TEMP 97.6; O2SAT 96
[2016-06-28] MEDS: VANCOMYCIN INJ 1,500 MG in SODIUM CHLORID 0.9% 500 ML INJ 500 ML IV SCH ×2 (00:32→16:59)
[2016-06-28] MEDS: ACETAMINOPHEN/HYDROcodone 325 MG/10 MG TAB PO PRN ×6 (00:32→21:48)
[2016-06-28 04:00] VITALS: BP_SYST 79; PULSE 106; RESP 20; TEMP 98; O2SAT 97
[2016-06-28] MEDS: INSULIN ASPART SUPPLEMENTAL SCALE SQ SCH ×4 (05:27→21:49)
[2016-06-28 08:00] VITALS: BP 127/57; PULSE 81; RESP 20; TEMP 98.1; O2SAT 100
[2016-06-28] MEDS: TIOTROPIUM BROMIDE 18 MCG INH INH SCH (08:50)
[2016-06-28] MEDS: ALBUTEROL SULFATE 90 MCG/ACT HFA 18 GM INHALER INH SCH ×4 (08:50→21:48)
[2016-06-28] MEDS: SODIUM CHLORIDE 0.9% FLUSH 10 ML FLUSH IV FLUSH SCH ×2 (08:51→21:48)
[2016-06-28] MEDS: LEVOFLOXACIN 750 MG TAB PO SCH (08:52)
[2016-06-28] MEDS: LACTOBACILLUS ACIDOPHILUS TAB PO SCH ×2 (08:52→21:47)
[2016-06-28] MEDS: SPIRONOLACTONE 100 MG TAB PO SCH (09:03)
[2016-06-28] MEDS: BUMETANIDE 1 MG TAB PO SCH (09:03)
[2016-06-28 10:37] LABS: BASOPHIL % 0.6 % (0.0-2.0); EOSINOPHIL # 0.1 TH/MM3 (0-0.4); EOSINOPHIL % 2.9 % (0.0-4.0); LYMPH % 26.7 % (9.0-44.0); LYMPHOCYTE # 0.5 TH/MM3 (1.0-4.8); MEAN CELL VOLUME 89.3 FL (80.0-100.0); MEAN CORPUSCULAR HEMOGLOBIN 29.8 PG (27.0-34.0); MEAN CORPUSCULAR HGB CONC 33.4 % (32.0-36.0); MONO % 16.5 % (0.0-8.0); NEUT % 53.3 % (16.0-70.0); PLATELET COUNT 64 TH/MM3 (150-450); RED BLOOD COUNT 2.91 MIL/MM3 (4.50-5.90); RED CELL DISTRIBUTION WIDTH 17.9 % (11.6-17.2); WHITE BLOOD COUNT 1.8 TH/MM3 (4.0-11.0)
[2016-06-28 10:48] LABS: HEMO FLAGS AUTO DIFF
[2016-06-28 11:20] LABS: BICARBONATE 30.3 MEQ/L (21.0-32.0); MAGNESIUM 1.7 MG/DL (1.5-2.5); POTASSIUM 3.7 MEQ/L (3.5-5.1)
[2016-06-28 12:00] VITALS: BP 118/59; PULSE 80; RESP 20; TEMP 97.3; O2SAT 96
[2016-06-28] MEDS: FERROUS SULFATE 325 MG (65 MG ELEMENTAL IRON) TAB PO SCH (13:44)
[2016-06-28 16:00] VITALS: BP 119/59; PULSE 74; RESP 20; TEMP 97.7; O2SAT 99
[2016-06-28 16:41] LABS: TOTAL BILIRUBIN ADULT 1.4 MG/DL (0.2-1.0)
[2016-06-28 16:42] LABS: BANDS 2 % (0-6); BASOPHILS 1 % (0-2); EOSINOPHILS 3 % (0-4); MYELOCYTES 1 % (0-0); NEUTROPHIL # MANUAL DIFF 1.2 TH/MM3 (1.8-7.7); PLATELET ESTIMATE SMEAR LOW (NORMAL); PLATELET MORPHOLOGY NORMAL (NORMAL); POLYS (SEG NEUTROPHILS) 61 % (16-70); SCAN/DIFF FINAL DIFF MANUAL; WBC DIFF SAMPLE 100
[2016-06-28 20:00] VITALS: BP 130/60; PULSE 75; RESP 19; TEMP 97.6; O2SAT 99
[2016-06-28 22:19] LABS: INTERNATIONAL NORMALIZED RATIO 1.2 RATIO; PROTHROMBIN TIME - PATIENT 13.6 SEC (9.8-11.6)
--- NOTE | 2016-06-28 23:38 | HHI.PR ---
Subjective Remarks patient seen this afternoon. Walking around in all. Says he feels all right. Left leg swelling improved slightly. no cp or sob. no abd pain. Patient advised to elevate as much as possible. Objective Vital Signs Date Time Temp Pulse Resp B/P Pulse Ox O2 Delivery O2 Flow Rate FiO2 06/28/16 21:45 Room Air 06/28/16 20:00 97.6 75 19 130/60 99 06/28/16 19:33 20 06/28/16 16:00 97.7 74 20 119/59 99 06/28/16 15:00 96 Room Air 06/28/16 12:00 97.3 80 20 118/59 96 06/28/16 08:00 98.1 81 20 127/57 100 06/28/16 04:00 98.0 106 20 79/ 97 06/28/16 00:00 97.6 106 20 116/76 96 I/O 06/27/16 06/27/16 06/27/16 06/28/16 06/28/16 06/28/16 07:00 15:00 23:00 07:00 15:00 23:00 Intake Total 480 ml 900 ml 480 ml 1500 ml 600 ml Output Total 400 ml 3000 ml Balance 80 ml -2100 ml 480 ml 1500 ml 600 ml Intake Oral 480 ml 900 ml 480 ml 1000 ml 600 ml IV Total 0 ml 500 ml Output Urine Total 400 ml 3000 ml # Voids 2 3 3 # Bowel Movements 0 0 0 Result Diagram: 06/28/16 0847 06/28/16 0847 Objective Remarks GENERAL: NAD. patient sitting up in bed, walking in room.aaox3 SKIN: Warm and dry. HEAD: Normocephalic. EYES: No scleral icterus. No injection or drainage. NECK: Supple, trachea midline. No JVD. CARDIOVASCULAR: Regular rate and rhythm without murmurs, gallops, or rubs. RESPIRATORY: Breath sounds equal bilaterally. No accessory muscle use. GASTROINTESTINAL: Abdomen soft, non-tender, nondistended. MUSCULOSKELETAL: No cyanosis. 2+ edema bilateral lower extremities. Erythema left lower extremity to mid calf. No broken skin.no change. BACK: Nontender without obvious deformity. No CVA tenderness. A/P Assessment and Plan 61 year-old male with history of anasarca and ascites secondary to cirrhosis presenting with left lower extremity pain. //Severe sepsis secondary to left lower extremity cellulitis- patient with leukopenia, tachycardia, lactic acidosis, and obvious source of infection. Chest x-ray unremarkable. US shows mild ascites. -Continue antibiotics for left lower [place] cellulitis. //Cellulitis-LLE: DVT negative. Continue vancomycin, cefepime, blood follow-up culture results. ID recommends cont antibiotics, elevate legs and compression stockings. May need podiatry consult in future. Add norco 10mg for pain 5-10, 7.5mg 1-4 = Improving slowly. Still with leukopenia.. Continue antibiotics, elevation. //Recent history of Acute Epididymitis & current Scrotal Edema: -Previously seen by urology, completed Levaquin. Continue to elevate scrotum. Pain control , on [place]. //Anasarca, ascites secondary to liver cirrhosis-history of hepatitis C, continue Bumex and Aldactone. = responding well to diuresis. =Continue diuresis. Continue to monitor. //Diabetes mellitus-hold oral hypoglycemic agents, continue sliding scale insulin. = Glucose acceptable. Continue to monitor. //transaminitis. Mild. Hyperbilirubinemia. 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 ultrasound with gallstones without cholecystitis on admission. No abdominal pain.Monitor LFTs. //Pancytopenia-likely secondary to consumptive coagulopathy/splenomegaly, infection.monitor. Follow CBC tomorrow //Anemia-possibly with iron deficiency anemia with increased RDW, iron panel shows iron 30, % 8.9. Cont iron supplement 325mg daily, will need follow up outpatient. //DVT prophylaxis: Pharmacological prophylaxis contraindicated because of anemia and pancytopenia. SCDs contraindicated because of cellulitis. Ambulate daily. Discharge Planning when cleared by infectious disease. Sean Monteiro MD Jun 28, 2016 23:38
[2016-06-29 02:25] LABS: HEMATOCRIT 25.6 % (39.0-51.0); MEAN CELL VOLUME 88.9 FL (80.0-100.0); MEAN CORPUSCULAR HEMOGLOBIN 30.2 PG (27.0-34.0); PLATELET COUNT 56 TH/MM3 (150-450); RED BLOOD COUNT 2.88 MIL/MM3 (4.50-5.90); RED CELL DISTRIBUTION WIDTH 17.6 % (11.6-17.2); WHITE BLOOD COUNT 1.8 TH/MM3 (4.0-11.0)
[2016-06-29 02:28] LABS: HEMO FLAGS AUTO DIFF
[2016-06-29] MEDS: ACETAMINOPHEN/HYDROcodone 325 MG/10 MG TAB PO PRN ×3 (02:36→11:10)
[2016-06-29 02:44] LABS: TOTAL BILIRUBIN ADULT 1.2 MG/DL (0.2-1.0)
[2016-06-29 02:45] LABS: BICARBONATE 29.9 MEQ/L (21.0-32.0); INDIRECT BILIRUBIN 0.7 MG/DL (0.0-0.8); MAGNESIUM 1.5 MG/DL (1.5-2.5); POTASSIUM 3.5 MEQ/L (3.5-5.1)
[2016-06-29 03:25] LABS: ACANTHOCYTES OCC (NORMAL); BANDS 5 % (0-6); EOSINOPHILS 3 % (0-4); NEUTROPHIL # MANUAL DIFF 1.2 TH/MM3 (1.8-7.7); PLATELET ESTIMATE SMEAR LOW (NORMAL); PLATELET MORPHOLOGY NORMAL (NORMAL); POLYS (SEG NEUTROPHILS) 59 % (16-70); SCAN/DIFF FINAL DIFF MANUAL; WBC DIFF SAMPLE 100
[2016-06-29 04:00] VITALS: BP 98/55; PULSE 77; RESP 19; TEMP 98; O2SAT 93
[2016-06-29] MEDS: INSULIN ASPART SUPPLEMENTAL SCALE SQ SCH ×2 (06:22→11:11)
[2016-06-29 08:04] VITALS: BP 112/55; PULSE 73; RESP 18; TEMP 98.5; O2SAT 96
[2016-06-29] MEDS: SPIRONOLACTONE 100 MG TAB PO SCH (09:20)
[2016-06-29] MEDS: LACTOBACILLUS ACIDOPHILUS TAB PO SCH (09:21)
[2016-06-29] MEDS: SODIUM CHLORIDE 0.9% FLUSH 10 ML FLUSH IV FLUSH SCH (09:21)
[2016-06-29] MEDS: BUMETANIDE 1 MG TAB PO SCH (09:21)
[2016-06-29] MEDS: LEVOFLOXACIN 750 MG TAB PO SCH (09:21)
[2016-06-29] MEDS: ALBUTEROL SULFATE 90 MCG/ACT HFA 18 GM INHALER INH SCH ×2 (09:22→13:47)
[2016-06-29] MEDS: TIOTROPIUM BROMIDE 18 MCG INH INH SCH (09:22)
[2016-06-29] MEDS ORDERED: MAGNESIUM HYDROXIDE SUSP 30 ML CUP PO ONE (10:00)
[2016-06-29] MEDS ORDERED: CLINDAMYCIN 150 MG CAP PO SCH (11:00)
[2016-06-29] MEDS: FERROUS SULFATE 325 MG (65 MG ELEMENTAL IRON) TAB PO SCH (11:35)
[2016-06-29 12:04] VITALS: BP 108/54; PULSE 72; RESP 18; TEMP 98; O2SAT 99
[2016-06-29] MEDS ORDERED: CLIN150 PO (13:01)
[2016-06-29] MEDS ORDERED: SPIRCAP INH (13:01)
[2016-06-29] MEDS ORDERED: LEVA750T PO (13:01)
[2016-06-29] MEDS ORDERED: FERR325T PO (13:01)
[2016-06-29] MEDS ORDERED: HYDR-3583 PO (13:29)
[2016-06-29] MEDS ORDERED: DOCUSATE SODIUM 50 MG/SENNA 8.6 MG TAB PO ONE (13:30)
--- NOTE | 2016-07-01 08:53 | HHI.DS ---
Discharge Summary Admission Date Jun 22, 2016 at 01:29 Discharge Date: June 29, 2016 Admitting Diagnosis Left leg cellulitis, Anasarca (1) Sepsis affecting skin ICD Code: L02.91 (2) Sepsis ICD Code: A41.9 (3) Left leg cellulitis ICD Code: L03.116 (4) Scrotal edema ICD Code: N50.89 (5) DM (diabetes mellitus) ICD Code: E11.9 (6) Cirrhosis ICD Code: K74.60 (7) Ascites ICD Code: R18.8 (8) Anasarca ICD Code: R60.1 (9) Lactic acidosis ICD Code: E87.2 Procedures no invasive procedures. Brief History - From Admission 61-year-old male with a PMH of HTN, Hepatitis C, DM, COPD and Tobacco Abuse who presented to the ER with complaints of worsening left lower extremity pain with significant redness and swelling. Patient was recently admitted to [facility] on 06/05/16 and discharged on 06/09/16, he was treated for acute epididymitis as well as UTI and anasarca and he was discharged on by mouth Levaquin which patient completed. Patient was instructed to follow-up at the [place] however he hasn't been able to do so and he has recently run out of his pain medication. Patient also reports increasing worsening edema in his abdomen, scrotal and lower extremities. He denies any prior history of paracentesis and he has no chest pain although he feels short of breath. There has been no subjective fever CBC/BMP: 06/29/16 0212 06/29/16 0212 Significant Findings Laboratory Tests Test 06/28/16 06/29/16 21:00 02:12 Prothrombin Time 13.6 SEC (9.8-11.6) White Blood Count 1.8 TH/MM3 (4.0-11.0) Red Blood Count 2.88 MIL/MM3 (4.50-5.90) Hemoglobin 8.7 GM/DL (13.0-17.0) Hematocrit 25.6 % (39.0-51.0) Red Cell Distribution Width 17.6 % (11.6-17.2) Platelet Count 56 TH/MM3 (150-450) Monocytes % 13 % (0-8) Neutrophils # (Manual) 1.2 TH/MM3 (1.8-7.7) Platelet Estimate LOW (NORMAL) Creatinine 0.54 MG/DL (0.60-1.30) Calcium Level 8.4 MG/DL (8.5-10.1) Total Bilirubin 1.2 MG/DL (0.2-1.0) Direct Bilirubin 0.5 MG/DL (0.0-0.2) Aspartate Amino Transf 38 U/L (15-37) (AST/SGOT) Albumin 2.5 GM/DL (3.4-5.0) Imaging Last Impressions Lower Extremity Ultrasound 06/24/16 0000 Signed Impressions: Service Date/Time: Friday, June 24, 2016 10:17 - CONCLUSION: Negative for deep venous thrombosis. Bilateral popliteal cysts. Donte Wilson MD FACR Abdomen Ultrasound 06/22/16 0000 Signed Impressions: Service Date/Time: Wednesday, June 22, 2016 08:46 - CONCLUSION: 1. Cholelithiasis. 2. Mild ascites 3. Echogenic liver compatible with fatty infiltration or hepatocellular disease. 4. Splenomegaly Memo Rodriges MD Chest X-Ray 06/21/162206 Signed Impressions: Service Date/Time: Tuesday, June 21, 2016 22:31 - CONCLUSION: Visualized portion of the lungs are clear. Sundeep Sheikh MD PE at Discharge GENERAL: Well nourished patient in no distress SKIN: BLE with some erythema, L>R, Would to right carney, with no drainage HEAD: Normocephalic. EYES: No scleral icterus. No injection or drainage. NECK: Supple, trachea midline. No JVD or lymphadenopathy. CARDIOVASCULAR: Regular rate and rhythm without murmurs, gallops, or rubs. RESPIRATORY: Bilateral rhonchi, no wheezing. GASTROINTESTINAL: Distended with a positive fluid wave noted. The patient reports tenderness on palpation related to abdominal distention, no focal tenderness. MUSCULOSKELETAL: Bilateral lower extremity edema, about 2-3+, chronic hyperpigmentation of her lower extremity likely secondary from venous stasis. Bilateral calf with erythema, warmth, tenderness, no crepitus. L>R, improving slightly : scrotal edema noted Alert, awake, oriented 3, moves extremities. No focal deficits. Pt update on day of discharge patient says he is feeling well. Denies any chest pain or shortness of breath. Hospital Course Patient was treated for sepsis secondary left lower extremity cellulitis. Blood cultures negative. Left lower extremity venous stasis cellulitis improved with elevation, antibiotics. Infectious disease was consulte, and assisted with care. For problem-based summary from most recent progress note, please see below. 61 year-old male with history of anasarca and ascites secondary to cirrhosis presenting with left lower extremity pain. //Severe sepsis secondary to left lower extremity cellulitis- patient with leukopenia, tachycardia, lactic acidosis, and obvious source of infection. Chest x-ray unremarkable. US shows mild ascites. -Continue antibiotics for left lower Leonora cellulitis. //Cellulitis-LLE: DVT negative. Continue vancomycin, cefepime, blood follow-up culture results. ID recommends cont antibiotics, elevate legs and compression stockings. May need podiatry consult in future. Add norco 10mg for pain 5-10, 7.5mg 1-4 = Improving slowly. Still with leukopenia.. Continue antibiotics, elevation. //Recent history of Acute Epididymitis & current Scrotal Edema: -Previously seen by urology, completed Levaquin. Continue to elevate scrotum. Pain control , on [place]. This improved during admission, patient walking around without difficulty. //Anasarca, ascites secondary to liver cirrhosis-history of hepatitis C, continue Bumex and Aldactone. = responding well to diuresis. =Continue home diuretics. Continue to monitor. //Diabetes mellitus-hold oral hypoglycemic agents, continue sliding scale insulin. = Glucose acceptable. Continue to monitor. //transaminitis. Mild. Hyperbilirubinemia. 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 ultrasound with gallstones without cholecystitis on admission. No abdominal pain.Monitor LFTs. //Pancytopenia-likely secondary to consumptive coagulopathy/splenomegaly, infection.monitor. Follow CBC tomorrow //Anemia-possibly with iron deficiency anemia with increased RDW, iron panel shows iron 30, % 8.9. Cont iron supplement 325mg daily, will need follow up outpatient. //DVT prophylaxis: Pharmacological prophylaxis contraindicated because of anemia and pancytopenia. SCDs contraindicated because of cellulitis. Ambulate daily. Pt Condition on Discharge: Good Discharge Disposition: Discharge Home Discharge Time: <= 30 minutes Discharge Instructions DIET: Follow Instructions for: Diabetic Diet Activities you can perform: Regular-No Restrictions Other Activity Instructions: keep legs elevated as much as possible Follow up Referrals: [facility] Medications: Clindamycin (Cleocin) 150 Mg Cap 300 MG PO Q8H infection Days 13 CAP Ferrous Sulfate (Ferrous Sulfate) 325 Mg Tab 325 MG PO Q24H anemia Days 30 TAB Hydrocodone-Acetaminophen (Hydrocodone-Acetaminophen) 10-325 mg Tab 1 TAB PO Q4H PRN Pain>5 #42 TAB Levofloxacin (Levaquin) 750 Mg Tab 750 MG PO DAILY infection #7 TAB Tiotropium Inh (Spiriva Handihaler) 18 Mcg Cap 18 MCG INH DAILY COPD Days 30 CAP Continued Medications: Bumetanide (Bumex) 1 Mg Tab 1 MG PO DAILY Fluid #30 Ref 0 TAB Hydrocodone-Acetaminophen (Hydrocodone-Acetaminophen) 5-325 mg Tab 1 TAB PO Q6HR PRN PAIN #20 TAB Ipratropium-Albuterol Inh (Combivent Respimat Inh) 20-100 Custodial/Act Aero 1 PUFF INH QID Asthma Management #1 Ref 0 INHALER Lactulose Liq (Lactulose Liq) 10 Gm/15 Ml Soln Unknown Dose PO TID Ref 0 ML Metformin (Metformin) 1,000 Mg Tab 1000 MG PO BID With meals Blood Sugar Management #60 Ref 0 TAB Spironolactone (Spironolactone) 100 Mg Tab 100 MG PO DAILY Fluid #30 Ref 0 TAB Discontinued Medications: Levofloxacin (Levaquin) 500 Mg Tab 500 MG PO DAILY Infection #8 TAB Sean Monteiro MD July 01, 2016 08:53
== END 2016-06-29 14:15 | disposition home or self-care (01) | DRG 871 ==
LOC: NEPC 20:33 → NEDA 06-22 01:29 → NEPHCDU 06-22 04:04 → N04B 06-24 17:27
PROVIDERS: ADMIT Internal Medicine; ATTEND Internal Medicine
DX: A41.9 Sepsis, unspecified organism (principal); D65 Disseminated intravascular coagulation [defibrination syndrome]; E87.2 Acidosis; D61.818 Other pancytopenia; R18.8 Other ascites; D69.59 Other secondary thrombocytopenia; L03.116 Cellulitis of left lower limb; L03.115 Cellulitis of right lower limb; L97.819 Non-pressure chronic ulcer of other part of right lower leg with unspecified severity; F15.93 Other stimulant use, unspecified with withdrawal; I50.9 Heart failure, unspecified; K74.60 Unspecified cirrhosis of liver; E11.9 Type 2 diabetes mellitus without complications; I10 Essential (primary) hypertension; D72.821 Monocytosis (symptomatic); J44.9 Chronic obstructive pulmonary disease, unspecified; B19.20 Unspecified viral hepatitis C without hepatic coma; R00.0 Tachycardia, unspecified; N50.89 Other specified disorders of the male genital organs; F17.210 Nicotine dependence, cigarettes, uncomplicated; Z79.84 Long term (current) use of oral hypoglycemic drugs; J45.909 Unspecified asthma, uncomplicated; Z87.440 Personal history of urinary (tract) infections; R65.20 Severe sepsis without septic shock; I87.8 Other specified disorders of veins; R16.1 Splenomegaly, not elsewhere classified; I34.0 Nonrheumatic mitral (valve) insufficiency; K80.20 Calculus of gallbladder without cholecystitis without obstruction
CPT/HCPCS: 71010; 76700; 76937; 80048; 80053; 80069; 80074; 80076; 80202; 81001; 82728; 82948; 83540; 83550; 83605; 83690; 83735; 83880; 84439; 84443; 85007; 85025; 85027; 85610; 85730; 86140; 87040; 93005; 93970; 96374; 96375; J0692; J1815; J2270; J2405; J2543; J3370; J7040; J7050

== ENCOUNTER 2016-07-09 23:06 | Observation (INO) | payer OTHER ==
[~2016-07-09] VITALS: Ht 177.8 cm; Wt 100.0 kg
[~2016-07-09 23:06] MED LIST changes: +CLIN150 PO; +FERR325T PO; +HYDR-3583 PO; -LEVA500T PO; +LEVA750T PO; +SPIRCAP INH
[2016-07-09 23:08] VITALS: BP 132/63; PULSE 89; RESP 16; TEMP 98.9; O2SAT 97
[2016-07-10] VITALS (10 sets, daily range): BP systolic 114–145; BP diastolic 56–68; PULSE 76–92; RESP 17–20; TEMP 97.4–98.7; O2SAT 90–99
[2016-07-10] MEDS ORDERED: ONDANSETRON HCL 4 MG/2 ML VIAL IVP ONE (01:00)
[2016-07-10] MEDS ORDERED: HYDROmorphone HCL PF 1 MG/ML VIAL IVS ONE (01:00)
--- NOTE | 2016-07-10 01:20 | RADRPT ---
EXAM DATE/TIME: 07/10/2016 01:11 [place] COMPARISON: CHEST SINGLE AP, June 21, 2016, 22:31. INDICATIONS : Shortness of breath. MEDICAL HISTORY : Hepatitis C. Asthma. SURGICAL HISTORY : None. ENCOUNTER: Initial ACUITY: 1 day PAIN SCORE: 0/10 LOCATION: Bilateral chest FINDINGS: A single view of the chest demonstrates the lungs to be symmetrically aerated without evidence of mas s, infiltrate or effusion. The cardiomediastinal contours are unremarkable. Osseous structures are intact. A few tiny metallic foreign bodies are seen projected over the right lower hemithorax. CONCLUSION: No acute disease. No significant change with the heart or lungs compared to the prior exam. Addison Daly MD on July 10, 2016 at 1:17 Board Certified Radiologist. This report was verified electronically.
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
[2016-07-10 01:46] LABS: AUTOMATED NEUTROPHIL # 1.3 TH/MM3 (1.8-7.7); BASOPHIL % 0.4 % (0.0-2.0); EOSINOPHIL # 0.1 TH/MM3 (0-0.4); HEMATOCRIT 29.4 % (39.0-51.0); LYMPH % 24.7 % (9.0-44.0); LYMPHOCYTE # 0.5 TH/MM3 (1.0-4.8); MEAN CELL VOLUME 88.9 FL (80.0-100.0); MEAN CORPUSCULAR HEMOGLOBIN 29.4 PG (27.0-34.0); MONO % 12.2 % (0.0-8.0); NEUT % 59.7 % (16.0-70.0); PLATELET COUNT 56 TH/MM3 (150-450); RED CELL DISTRIBUTION WIDTH 18.7 % (11.6-17.2); WHITE BLOOD COUNT 2.1 TH/MM3 (4.0-11.0)
[2016-07-10 01:48] LABS: HEMO FLAGS AUTO DIFF
[2016-07-10 01:59] LABS: INTERNATIONAL NORMALIZED RATIO 1.3 RATIO; PROTHROMBIN TIME - PATIENT 14.5 SEC (9.8-11.6)
[2016-07-10 02:08] LABS: ALT (GPT) 36 U/L (12-78); ANION GAP 9 MEQ/L (5-15); AST (GOT) 44 U/L (15-37); BICARBONATE 26.1 MEQ/L (21.0-32.0); BLOOD UREA NITROGEN 10 MG/DL (7-18); CHLORIDE 102 MEQ/L (98-107); GLOMERULAR FILTRATION RATE 130 ML/MIN (>89); SODIUM (NA) 137 MEQ/L (136-145)
[2016-07-10 02:09] LABS: ALKALINE PHOSPHATASE 135 U/L (45-117); TOTAL BILIRUBIN ADULT 1.1 MG/DL (0.2-1.0)
[2016-07-10 02:25] LABS: OVALOCYTES 1+ (NORMAL); PLATELET ESTIMATE SMEAR LOW (NORMAL); PLATELET MORPHOLOGY NORMAL (NORMAL); SCAN/DIFF AUTO DIFF CONFIRMED
[2016-07-10 03:38] LABS: BLOOD, URINE TRACE (NEG); GLUCOSE,URINE NEG (NEG); KETONE, URINE NEG (NEG); NITRITE,URINE NEG (NEG); PH, URINE 6.5 (5.0-8.5); URINE COLOR YELLOW (YELLW/STRAW)
[2016-07-10 03:39] LABS: COMMENT (UR) CULT NOT INDICATED; CULTURE IF INDICATED CULT NOT INDICATED
[2016-07-10] MEDS ORDERED: NALOXONE HCL 0.4 MG/ML AMP IV PRN (04:00)
[2016-07-10] MEDS ORDERED: DEXTROSE 50% IN WATER 50 ML VIAL(D50) IV PUSH PRN (04:00)
[2016-07-10] MEDS ORDERED: SODIUM CHLORIDE 0.9% FLUSH 10 ML FLUSH IV FLUSH PRN (04:00)
[2016-07-10] MEDS ORDERED: GLUCAGON 1 MG/ML VIAL OTHER PRN (04:00)
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
[2016-07-10] MEDS ORDERED: HYDROmorphone HCL PF 1 MG/ML VIAL IV PUSH PRN (05:30)
[2016-07-10] MEDS ORDERED: FUROSEMIDE 40 MG/4 ML VIAL IV PUSH ONE (05:30)
[2016-07-10] MEDS ORDERED: RESP: ALBUTEROL 2.5 MG/IPRATROPIUM 0.5 MG NEB (PRN) NEB (05:45)
[2016-07-10] MEDS: INSULIN ASPART SUPPLEMENTAL SCALE SQ SCH ×4 (06:15→21:23)
[2016-07-10] MEDS ORDERED: RESP: ALBUTEROL 2.5 MG/IPRATROPIUM 0.5 MG NEB (SCH) NEB (10:00)
[2016-07-10] MEDS ORDERED: ACETAMINOPHEN/HYDROcodone 325 MG/5 MG TAB PO PRN (10:45)
--- NOTE | 2016-07-10 10:45 | HHI.PR ---
Subjective Remarks Follow up bilateral leg swelling. Patient states he has been compliant with his diuretics at home and he wears the compression stockings off and on. He does have an appointment coming up with a field talent qualification specialist at the [facility]. States he has been a little more active doing errands, and tries to elevated legs as much as possible when he is home. He states both lower extremities are burning and tingling, he has tried gabapentin in the past without any relief. Denies any Sob , or chest pain. States his belly is bigger but he wants to give time for the diuretics to work before he considers a paracentesis. Objective Vitals Vital Signs Date Time Temp Pulse Resp B/P Pulse Ox O2 Delivery O2 Flow Rate FiO2 07/10/16 09:34 99 21 07/10/16 08:19 98.7 83 18 126/64 95 07/10/16 04:00 86 20 134/63 96 Nasal Cannula 2 07/10/16 03:00 90 17 139/65 90 Nasal Cannula 2 07/10/16 02:15 20 07/10/16 02:00 92 19 138/64 95 Room Air 07/10/16 00:41 89 17 144/68 99 Room Air 07/09/16 23:08 98.9 89 16 132/63 97 Room Air I/O 07/09/16 07/09/16 07/09/16 07/10/16 07/10/16 07/10/16 07:00 15:00 23:00 07:00 15:00 23:00 Output Total 700 ml Balance -700 ml Output Urine Total 700 ml Result Diagram: 07/10/16 0100 07/10/16 0100 Objective Remarks GENERAL: Well nourished patient in NAD SKIN: Bilateral lower extremities edematous, and warm. HEAD: Atraumatic. Normocephalic. EYES: Pupils equal and round. No scleral icterus. No injection or drainage. ENT: No nasal bleeding or discharge. Mucous membranes pink and moist. NECK: Trachea midline. No JVD. CARDIOVASCULAR: Regular rate and rhythm. RESPIRATORY: No accessory muscle use. Clear to auscultation. Breath sounds equal bilaterally. GASTROINTESTINAL: Abdomen soft, non-tender, nondistended. Hepatic and splenic margins not palpable. MUSCULOSKELETAL: Extremities without clubbing, cyanosis, or edema. No obvious deformities. NEUROLOGICAL: Awake and alert. No obvious cranial nerve deficits. Motor grossly within normal limits. Five out of 5 muscle strength in the arms and legs. Normal speech. PSYCHIATRIC: Appropriate mood and affect; insight and judgment normal. A/P Problem List: (1) Anasarca ICD Code: R60.1 Status: Acute (2) Cirrhosis ICD Code: K74.60 Status: Acute Assessment and Plan 61 y/o with chronic anasarca, cirrhosis, and hep c presented with: Worsening anasarca, patient states compliance with diuretics and teds at times. -Hold home Bumex, Cont home Aldactone -Cont IV Lasix BID -Patient has appointment with podiatry at the [facility] coming up -Teds and elevate BLE when in bed -Ryder PO for pain -Per Dr. Hollingsworth [facility], Cirrhosis, pt does not want a paracentesis as if yet -cont diuretics Hep C, chronic -[facility] DVT prophylaxis: teds, scds Discharge Planning Pending improvement Kamini Pastrana July 10, 2016 10:45
[2016-07-10] MEDS: SPIRONOLACTONE 100 MG TAB PO SCH (10:50)
[2016-07-10] MEDS: FUROSEMIDE 40 MG/4 ML VIAL IV PUSH SCH ×2 (10:50→18:38)
[2016-07-10] MEDS: SODIUM CHLORIDE 0.9% FLUSH 10 ML FLUSH IV FLUSH SCH ×2 (10:51→21:18)
[2016-07-10] MEDS: FERROUS SULFATE 325 MG (65 MG ELEMENTAL IRON) TAB PO SCH (10:51)
[2016-07-10] MEDS ORDERED: ALBUMIN HUMAN 25% 12.5 GM/50 ML BAGP IV ONE (18:00)
[2016-07-10] MEDS: ACETAMINOPHEN/HYDROcodone 325 MG/10 MG TAB PO PRN (18:37)
[2016-07-11] VITALS (7 sets, daily range): BP systolic 99–111; BP diastolic 52–68; PULSE 68–85; RESP 16–20; TEMP 96.2–99.6; O2SAT 93–98
[2016-07-11] MEDS: ACETAMINOPHEN/HYDROcodone 325 MG/10 MG TAB PO PRN ×3 (04:44→18:20)
[2016-07-11] MEDS: INSULIN ASPART SUPPLEMENTAL SCALE SQ SCH ×4 (06:19→21:26)
[2016-07-11] MEDS ORDERED: PNEUMOCOCCAL POLYVALENT INJ 25 MCG/0.5 ML SYR IM ONE (09:00)
--- NOTE | 2016-07-11 09:01 | HHI.FF ---
Face to Face Verification Diagnosis: (1) Anasarca (2) Cirrhosis (3) DM (diabetes mellitus) (4) Ascites Physical Therapy Order: Evaluate and Treat Home Health Nursing Order: Medical education Signs/symptoms of disease process Diabetic education Medication education-adverse effect Wound care and dressing changes (lyphadema please wrap with compression stocking or nik wraps) Nursing assessment with vital signs I have seen patient Jesus CalvertRylee on 07/11/16. My clinical findings support the need for the requested home health care services because: Ltd mobility - disease progression Deconditioned w/ increased weakness Med compliance is questionable Limited ability to care for self I certify that my clinical findings support that this patient is homebound because: Unsafe to leave home unassisted Unable to use public transportation Kamini Pastrana July 11, 2016 09:01
[2016-07-11 09:19] LABS: AUTOMATED NEUTROPHIL # 1.3 TH/MM3 (1.8-7.7); BASOPHIL % 0.2 % (0.0-2.0); EOSINOPHIL # 0.1 TH/MM3 (0-0.4); EOSINOPHIL % 3.6 % (0.0-4.0); HEMATOCRIT 28.2 % (39.0-51.0); LYMPH % 20.1 % (9.0-44.0); LYMPHOCYTE # 0.4 TH/MM3 (1.0-4.8); MEAN CELL VOLUME 88.3 FL (80.0-100.0); MEAN CORPUSCULAR HEMOGLOBIN 29.6 PG (27.0-34.0); MEAN CORPUSCULAR HGB CONC 33.6 % (32.0-36.0); MONO % 15.9 % (0.0-8.0); NEUT % 60.2 % (16.0-70.0); PLATELET COUNT 50 TH/MM3 (150-450); RED BLOOD COUNT 3.19 MIL/MM3 (4.50-5.90); RED CELL DISTRIBUTION WIDTH 18.6 % (11.6-17.2); WHITE BLOOD COUNT 2.1 TH/MM3 (4.0-11.0)
[2016-07-11 09:23] LABS: HEMO FLAGS AUTO DIFF
[2016-07-11] MEDS: FERROUS SULFATE 325 MG (65 MG ELEMENTAL IRON) TAB PO SCH (09:24)
[2016-07-11] MEDS: BUMETANIDE 1 MG TAB PO SCH (09:24)
[2016-07-11] MEDS: SODIUM CHLORIDE 0.9% FLUSH 10 ML FLUSH IV FLUSH SCH ×2 (09:24→20:40)
[2016-07-11] MEDS: SPIRONOLACTONE 100 MG TAB PO SCH (09:24)
[2016-07-11 09:59] LABS: ALKALINE PHOSPHATASE 100 U/L (45-117); ALT (GPT) 31 U/L (12-78); ANION GAP 7 MEQ/L (5-15); AST (GOT) 38 U/L (15-37); BICARBONATE 29.6 MEQ/L (21.0-32.0); BLOOD UREA NITROGEN 14 MG/DL (7-18); CHLORIDE 97 MEQ/L (98-107); GLOMERULAR FILTRATION RATE 121 ML/MIN (>89); MAGNESIUM 1.6 MG/DL (1.5-2.5); POTASSIUM 3.9 MEQ/L (3.5-5.1); SODIUM (NA) 134 MEQ/L (136-145); TOTAL BILIRUBIN ADULT 1.6 MG/DL (0.2-1.0)
[2016-07-11 10:03] LABS: OVALOCYTES 1+ (NORMAL); PLATELET ESTIMATE SMEAR LOW (NORMAL); PLATELET MORPHOLOGY NORMAL (NORMAL); SCAN/DIFF AUTO DIFF CONFIRMED
--- NOTE | 2016-07-11 10:42 | HHI.PR ---
Subjective Remarks Follow up lymphedema. Patient states his legs are a little better, not currently wearing his compression stockings because they were hurting him. He states if he goes home he would have to get around and cook for himself which would limit him elevating his legs. Explained in detail the importance of either compression stocking or ac wraps for lymphedema control, and the need to keep his outpatient appointment with podiatry. Denies any sob, chest pain, fever or chills. Objective Vitals Vital Signs Date Time Temp Pulse Resp B/P Pulse Ox O2 Delivery O2 Flow Rate FiO2 07/11/16 07:40 97.8 79 16 107/52 93 07/11/16 04:41 97.6 85 20 104/58 94 07/11/16 01:39 84 07/11/16 00:07 96.2 76 18 103/56 97 07/10/16 20:02 97.4 84 19 145/68 95 07/10/16 15:46 76 18 114/56 96 07/10/16 14:19 86 07/10/16 12:04 97.9 79 18 126/58 95 I/O 07/10/16 07/10/16 07/10/16 07/11/16 07/11/16 07/11/16 07:00 15:00 23:00 07:00 15:00 23:00 Output Total 700 ml 3200 ml Balance -700 ml -3200 ml Output Urine Total 700 ml 3200 ml # Bowel Movements 0 Result Diagram: 07/11/16 0855 07/11/16 0855 Imaging Last Impressions Chest X-Ray 07/10/16 0059 Signed Impressions: Service Date/Time: Sunday, July 10, 2016 01:11 - CONCLUSION: No acute disease. No significant change with the heart or lungs compared to the prior exam. Addison Daly MD Objective Remarks GENERAL: Well nourished patient in NAD SKIN: Bilateral lower extremities edematous, and warm. HEAD: Atraumatic. Normocephalic. EYES: Pupils equal and round. No scleral icterus. No injection or drainage. ENT: No nasal bleeding or discharge. Mucous membranes pink and moist. NECK: Trachea midline. No JVD. CARDIOVASCULAR: Regular rate and rhythm. RESPIRATORY: No accessory muscle use. Clear to auscultation. Breath sounds equal bilaterally. GASTROINTESTINAL: Abdomen soft, non-tender, nondistended. Hepatic and splenic margins not palpable. MUSCULOSKELETAL: Bilateral lower extremities edematous, improving. No obvious deformities. NEUROLOGICAL: Awake and alert. Motor grossly within normal limits. Normal speech. PSYCHIATRIC: Appropriate mood and affect; insight and judgment normal. Medications and IVs Current Medications Medications (Trade) Dose Ordered Sig/Tammie Route Start Time Stop Time Status Last Admin (NS Flush) 2 ml UNSCH PRN IV FLUSH 07/10/16 04:00 (NS Flush) 2 ml BID IV FLUSH 07/10/16 09:00 07/11/16 09:24 (Narcan Inj) 0.4 mg UNSCH PRN IV 07/10/16 04:00 (D50w (Vial) Inj) 25 ml UNSCH PRN IV PUSH 07/10/16 04:00 (Glucagon Inj) 1 mg UNSCH PRN OTHER 07/10/16 04:00 (Ferrous Sulfate) 325 mg Q24H PO 07/10/16 09:00 07/11/16 09:24 (Aldactone) 100 mg DAILY PO 07/10/16 10:00 07/11/16 09:24 ([place] 5-325 Mg) 1 tab Q6H PRN PO 07/10/16 10:45 07/10/16 13:06 ([place] 10-325 Mg) 1 tab Q6H PRN PO 07/10/16 17:00 07/11/16 09:27 (Bumetanide) 1 mg DAILY PO 07/11/16 09:00 07/11/16 09:24 A/P Problem List: (1) Anasarca ICD Code: R60.1 Status: Acute (2) Cirrhosis ICD Code: K74.60 Status: Acute Assessment and Plan 61 y/o with chronic anasarca, cirrhosis, and hep c presented with: Worsening anasarca, patient states compliance with diuretics and teds at times. -Cont home Aldactone, restart home bumex -Iv Lasix D/C -Patient has appointment with podiatry at the [place] coming up -Teds or AC Wrap and elevate BLE when in bed -[place] PO for pain -Per Dr. Hollingsworth patient needs to go to the [place] for wound care/lymphedema care, -PT eval, will try to set up home health Cirrhosis, pt does not want a paracentesis as if yet -cont diuretics Hep C, chronic -[facility] DVT prophylaxis: hussein, jah Discharge Planning Pending improvement Kamini Pastrana July 11, 2016 10:42
[2016-07-11] MEDS: metFORMIN HCL 500 MG TAB PO SCH ×2 (12:41→20:41)
[2016-07-12] VITALS: BP 101/56; PULSE 80; RESP 20; TEMP 98.5; O2SAT 94
[2016-07-12] MEDS: ACETAMINOPHEN/HYDROcodone 325 MG/10 MG TAB PO PRN ×2 (00:54→06:32)
[2016-07-12 04:00] VITALS: BP 104/51; PULSE 83; RESP 20; TEMP 98.9; O2SAT 95
[2016-07-12 05:13] LABS: AUTOMATED NEUTROPHIL # 1.1 TH/MM3 (1.8-7.7); BASOPHIL % 0.3 % (0.0-2.0); EOSINOPHIL # 0.1 TH/MM3 (0-0.4); EOSINOPHIL % 3.2 % (0.0-4.0); HEMATOCRIT 25.9 % (39.0-51.0); LYMPH % 26.7 % (9.0-44.0); LYMPHOCYTE # 0.5 TH/MM3 (1.0-4.8); MEAN CELL VOLUME 88.6 FL (80.0-100.0); MEAN CORPUSCULAR HEMOGLOBIN 28.7 PG (27.0-34.0); MEAN CORPUSCULAR HGB CONC 32.4 % (32.0-36.0); MONO % 15.8 % (0.0-8.0); PLATELET COUNT 48 TH/MM3 (150-450); RED BLOOD COUNT 2.93 MIL/MM3 (4.50-5.90); RED CELL DISTRIBUTION WIDTH 18.2 % (11.6-17.2)
[2016-07-12 05:31] LABS: HEMO FLAGS AUTO DIFF
[2016-07-12 05:36] LABS: BICARBONATE 32.2 MEQ/L (21.0-32.0); POTASSIUM 3.8 MEQ/L (3.5-5.1)
[2016-07-12] MEDS: INSULIN ASPART SUPPLEMENTAL SCALE SQ SCH (06:00)
[2016-07-12 07:49] LABS: PLATELET ESTIMATE SMEAR LOW (NORMAL); PLATELET MORPHOLOGY NORMAL (NORMAL); SCAN/DIFF AUTO DIFF CONFIRMED
--- NOTE | 2016-07-12 08:16 | HHI.DS ---
Discharge Summary Admission Date July 10, 2016 at 3:45 am Discharge Date: July 12, 2016 Admitting Diagnosis Worsening anasarca, ascitis, pancytopenia, hepatitis C. (1) Lymphedema of both lower extremities ICD Code: I89.0 Diagnosis: Principal (2) Anasarca ICD Code: R60.1 Diagnosis: Principal (3) Cirrhosis ICD Code: K74.60 Diagnosis: Secondary (4) Ascites ICD Code: R18.8 Diagnosis: Secondary (5) DM (diabetes mellitus) ICD Code: E11.9 Diagnosis: Secondary Procedures No procedures performed to the patient. Brief History - From Admission swelling in bilateral LE short of breath on short distance pain everywhere and abdominal distension never had paracetnesis going since april no fever burning urination - no pain have to squat to pee also had diarrhea twice a day - 3 x aday black color stool 3 yrs ago, was hospitalized [facility] in [place] for gi bleed CBC/BMP: 07/12/16 0425 07/12/16 0425 Significant Findings Laboratory Tests Test 07/10/16 07/10/16 07/11/16 07/12/16 01:00 03:10 08:55 04:25 White Blood Count 2.1 TH/MM3 2.1 TH/MM3 2.0 TH/MM3 (4.0-11.0) (4.0-11.0) (4.0-11.0) Red Blood Count 3.30 MIL/MM3 3.19 MIL/MM3 2.93 MIL/MM3 (4.50-5.90) (4.50-5.90) (4.50-5.90) Hemoglobin 9.7 GM/DL 9.4 GM/DL 8.4 GM/DL (13.0-17.0) (13.0-17.0) (13.0-17.0) Hematocrit 29.4 % 28.2 % 25.9 % (39.0-51.0) (39.0-51.0) (39.0-51.0) Red Cell Distribution Width 18.7 % 18.6 % 18.2 % (11.6-17.2) (11.6-17.2) (11.6-17.2) Platelet Count 56 TH/MM3 50 TH/MM3 48 TH/MM3 (150-450) (150-450) (150-450) Monocytes (%) (Auto) 12.2 % 15.9 % 15.8 % (0.0-8.0) (0.0-8.0) (0.0-8.0) Neutrophils # (Auto) 1.3 TH/MM3 1.3 TH/MM3 1.1 TH/MM3 (1.8-7.7) (1.8-7.7) (1.8-7.7) Lymphocytes # (Auto) 0.5 TH/MM3 0.4 TH/MM3 0.5 TH/MM3 (1.0-4.8) (1.0-4.8) (1.0-4.8) Platelet Estimate LOW (NORMAL) LOW (NORMAL) LOW (NORMAL) Ovalocytes 1+ (NORMAL) 1+ (NORMAL) Prothrombin Time 14.5 SEC (9.8-11.6) Random Glucose 200 MG/DL 270 MG/DL 182 MG/DL (74-106) (74-106) (74-106) Total Bilirubin 1.1 MG/DL 1.6 MG/DL (0.2-1.0) (0.2-1.0) Aspartate Amino Transf 44 U/L (15-37) 38 U/L (15-37) (AST/SGOT) Alkaline Phosphatase 135 U/L (45-117) Albumin 2.8 GM/DL 2.7 GM/DL (3.4-5.0) (3.4-5.0) Urine Occult Blood TRACE (NEG) Sodium Level 134 MEQ/L (136-145) Chloride Level 97 MEQ/L (98-107) Calcium Level 8.3 MG/DL (8.5-10.1) Carbon Dioxide Level 32.2 MEQ/L (21.0-32.0) Creatinine 0.57 MG/DL (0.60-1.30) Imaging Last Impressions Chest X-Ray 07/10/16 0059 Signed Impressions: Service Date/Time: Sunday, July 10, 2016 01:11 - CONCLUSION: No acute disease. No significant change with the heart or lungs compared to the prior exam. Addison Daly MD PE at Discharge GENERAL: Well nourished middle aged male patient in NAD SKIN: Bilateral lower extremities edematous, and warm. HEENT: Atraumatic. Normocephalic. Pupils equal and round. No scleral icterus. Mucous membranes pink and moist. NECK: Trachea midline. CARDIOVASCULAR: Regular rate and rhythm. No murmur appreciated. RESPIRATORY: No accessory muscle use. Clear to auscultation. Breath sounds equal bilaterally. GASTROINTESTINAL: Abdomen soft, non-tender, nondistended. Hepatic and splenic margins not palpable. MUSCULOSKELETAL: Bilateral lower extremities with chronic lymphedema, improving. No obvious deformities. NEUROLOGICAL: Awake and alert. Motor grossly within normal limits. Normal speech. PSYCHIATRIC: Appropriate mood and affect; insight and judgment normal. Pt update on day of discharge Follow up for lymphedema, anasarca. The patient reports feeling better again today. He is seen sitting upright on the side of the bed watching television, with his legs hanging off the side of the bed and without aga hose on. The patient states he had aga hose on throughout the night but he "needs a break from them". Again stressed importance of leg elevation, aga hose, and compliance with diuretic after discharge, patient verbalized understanding. Otherwise he denies any chest pain or shortness of breath. Denies any abdominal pain/nausea/vomiting. He is tolerating oral intake. He agrees to discharge today however is asking for refill of "42 pills of norco 10s, not the 5s, same thing the doctor gave me last time". We discussed that he needs to see his doctor as outpatient and he says the [facility] is trying to send him to [facility] for pain management and he can't get a ride out there and his PCP at the [facility] refuses to give him pain medications. He complains of pain at his legs and back. Hospital Course 61 y/o with chronic anasarca, cirrhosis, and hep c presented with: Worsening anasarca, patient states compliance with diuretics and teds, however has been noncompliant with teds and leg elevation within the hospital. S/p diuresis with IV Lasix with some improvement, changed to patient po bumex and aldactone. Continued teds and leg elevation. [place] prn pain. Per Dr. Hollingsworth patient needs to go to the [facility] for wound care/lymphedema care, patient has an appointment in 1-2 weeks at the [facility]. Again stressed importance of leg elevation, aga hose, and compliance with diuretic after discharge, patient verbalized understanding. Tried to arrange C with case management however the patient refused, states his roommates will not allow him to have nurses come into the home, but he is looking for a new place to live on July 30. Hepatitis C with Cirrhosis and Ascites: patient declines paracentesis. Continued diuretics as above, patient improved. Tolerating oral intake. He states he has an appt at the [facility] to discuss his cirrhosis and hepatitis C. DVT prophylaxis: hussein Pt Condition on Discharge: Stable Discharge Disposition: Discharge Home Discharge Time: > 30 minutes Discharge Instructions DIET: Follow Instructions for: Heart Healthy Diet, Diabetic Diet Activities you can perform: Regular-No Restrictions Follow up Referrals: [facility] New Medications: Hydrocodone-Acetaminophen (Hydrocodone-Acetaminophen) 10-325 mg Tab 1 TAB PO Q6H PRN PAIN SCALE 1 TO 10 #12 TAB Continued Medications: Bumetanide (Bumex) 1 Mg Tab 1 MG PO DAILY Fluid #30 Ref 0 TAB Ferrous Sulfate (Ferrous Sulfate) 325 Mg Tab 325 MG PO Q24H anemia Days 30 TAB Ipratropium-Albuterol Inh (Combivent Respimat Inh) 20-100 Correction/Act Aero 1 PUFF INH QID Asthma Management #1 Ref 0 INHALER Lactulose Liq (Lactulose Liq) 10 Gm/15 Ml Soln Unknown Dose PO TID Ref 0 ML Metformin (Metformin) 1,000 Mg Tab 1000 MG PO BID With meals Blood Sugar Management #60 Ref 0 TAB Spironolactone (Spironolactone) 100 Mg Tab 100 MG PO DAILY Fluid #30 Ref 0 TAB Discontinued Medications: Clindamycin (Cleocin) 150 Mg Cap 300 MG PO Q8H infection Days 13 CAP Levofloxacin (Levaquin) 750 Mg Tab 750 MG PO DAILY infection #7 TAB Tiotropium Inh (Spiriva Handihaler) 18 Mcg Cap 18 MCG INH DAILY COPD Days 30 CAP Barbi Mock PA-C July 12, 2016 08:16
[2016-07-12 08:24] VITALS: BP 117/62; PULSE 77; RESP 21; TEMP 98.4; O2SAT 97
[2016-07-12] MEDS ORDERED: HYDR-3583 PO ×2 (08:49→10:08)
[2016-07-12] MEDS: SPIRONOLACTONE 100 MG TAB PO SCH (09:49)
[2016-07-12] MEDS: metFORMIN HCL 500 MG TAB PO SCH (09:49)
[2016-07-12] MEDS: BUMETANIDE 1 MG TAB PO SCH (09:49)
[2016-07-12] MEDS: FERROUS SULFATE 325 MG (65 MG ELEMENTAL IRON) TAB PO SCH (09:49)
[2016-07-12] MEDS: SODIUM CHLORIDE 0.9% FLUSH 10 ML FLUSH IV FLUSH SCH (09:50)
== END 2016-07-12 11:36 | disposition home or self-care (01) ==
LOC: NEPE 23:06 → NEDA 07-10 03:45 → NEPHCDU 07-10 04:49
PROVIDERS: ADMIT Internal Medicine; ATTEND Internal Medicine
DX: I89.0 Lymphedema, not elsewhere classified (principal); K74.60 Unspecified cirrhosis of liver; R18.8 Other ascites; B18.8 Other chronic viral hepatitis; I11.0 Hypertensive heart disease with heart failure; I50.9 Heart failure, unspecified; E11.9 Type 2 diabetes mellitus without complications; J44.9 Chronic obstructive pulmonary disease, unspecified; F17.210 Nicotine dependence, cigarettes, uncomplicated; Z79.84 Long term (current) use of oral hypoglycemic drugs; Z91.19 Patient's noncompliance with other medical treatment and regimen; Z23 Encounter for immunization
CPT/HCPCS: 71010; 80048; 80053; 81001; 82948; 83735; 83880; 85025; 85610; 85730; 90732; 96374; 96375; 97161; 99285; G0378; G8987; G8988; J1170; J1815; J1940; J2405; P9047